=== PATIENT | female | born 1960 | race Caucasian/White ===

== ENCOUNTER 2019-09-26 14:28 | Emergency (ER) | payer OTHER, SELFPAY ==
[2019-09-26 15:07] VITALS: BP 163/86; PULSE 80; RESP 16; O2SAT 98; BMI 27.3
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
[2019-09-26] MEDS: KETOROLAC 60 MG/2 ML VIAL 30 MG IM (16:59)
[2019-09-26] MEDS: BACITRACIN OINT 0.9 GM PCKT 5 APPLIC TOP (16:59)
[2019-09-26] MEDS: HYDROCODONE/ACET 5/325 TABLET 1 TAB PO (17:00)
[2019-09-26 17:32] VITALS: BP 167/81; PULSE 86; O2SAT 100
[2019-09-26 17:38] VITALS: BP 168/85; PULSE 86; O2SAT 98
== END 2019-09-26 17:32 | disposition home or self-care (01) ==
PROVIDERS: Emergency Provider Nurse Practitioner Family; Family Provider Physician Assistant; PCP Orthopaedic Surgery
DX: L55.9 Sunburn, unspecified (principal)
CPT/HCPCS: 96372; 99283; J1885

== ENCOUNTER 2020-09-24 18:36 | Emergency (ER) | payer OTHER, SELFPAY ==
[2020-09-24 18:41] VITALS: BP 182/78; PULSE 78; RESP 14; TEMP 36.8; O2SAT 99
--- NOTE | 2020-09-24 18:49 | DI.RAD.S_ITS ---
PROCEDURE: XR KNEE RT 3V INDICATIONS: fall TECHNIQUE: 3 views of the knee were acquired. COMPARISON: None. FINDINGS: Bones: No fractures or dislocations. No suspicious bony lesions. Soft tissues: No joint effusion. No suspicious soft tissue calcifications. IMPRESSION: Normal right knee Dictated by: Dale Choi M.D. on 09/24/2020 at 19:45 Approved by: Dale Choi M.D. on 09/24/2020 at 19:46
--- NOTE | 2020-09-24 18:49 | DI.RAD.S_ITS ---
PROCEDURE: XR WRIST LT MIN 3V INDICATIONS: fall TECHNIQUE: 5 views of the wrist were acquired. COMPARISON: None. FINDINGS: Bones: No fracture or dislocation. There are degenerative changes with subchondral cystic changes of the base of the thumb metacarpal. Scaphoid view: No fracture. Soft tissues: Calcifications are seen in the triangular fibrocartilage consistent with chondrocalcinosis. IMPRESSION: 1. No acute abnormality of left wrist. 2. Chondrocalcinosis. Differential diagnosis includes but is not limited to hemochromatosis, hyperparathyroidism, and CPPD. Dictated by: Dale Choi M.D. on 09/24/2020 at 19:41 Approved by: Dale Choi M.D. on 09/24/2020 at 19:45
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
[2020-09-24 22:24] VITALS: BP 178/90; PULSE 70; RESP 18; O2SAT 95
== END 2020-09-24 22:26 | disposition home or self-care (01) ==
PROVIDERS: Emergency Provider Emergency Medicine; Family Provider Physician Assistant; PCP Family Medicine
DX: S80.211A Abrasion, right knee, initial encounter (principal); S60.212A Contusion of left wrist, initial encounter; S20.211A Contusion of right front wall of thorax, initial encounter; W10.9XXA Fall (on) (from) unspecified stairs and steps, initial encounter; Y99.0 Civilian activity done for income or pay
CPT/HCPCS: 71045; 73110; 73562; 99281; 99283

== ENCOUNTER → 2020-11-04 10:42 | Outpatient (CLI) | payer OTHER, SELFPAY ==
[2020-11-04 12:39] LABS: COVID19 -Nasal RAPID Negative (Negative)
== END ==
PROVIDERS: Family Provider Physician Assistant; PCP Family Medicine; Referring Provider Internal Medicine; Visit Provider Internal Medicine
DX: Z20.822 Contact with and (suspected) exposure to COVID-19 (principal)
CPT/HCPCS: 87635; C9803

== ENCOUNTER → 2020-11-05 08:34 | Outpatient (CLI) | payer OTHER, SELFPAY ==
--- NOTE | 2020-11-11 09:21 | PM.PFT.1 ---
Pulmonary Function Test Referral & Results Date Patient Seen: 11/05/20 Requesting provider: Deep Phipps Indication: Dyspnea Results: The spirometry demonstrates an FVC of 2.23 L which is 67% of predicted. The FEV1 was measured at 1.67 L which is 64% of predicted. The FEV1/FVC ratio was 75 which is 95% of predicted. Following the administration of bronchodilator there was at 13% improvement in FEV1 and a 57% improvement in FEF 25-75%. Lung volumes show an SVC of 2.37 L which is 77% of predicted. The diffusing capacity was measured at 16.30 which is 67% of predicted. No hemoglobin value was provided, so no correction for potential anemia could be made, if appropriate. The maximum voluntary ventilation was slightly reduced Interpretation: This study demonstrates perhaps mild obstructive lung disease based on reduction FEV1 although FEV1/FVC ratio is preserved. There is some limited evidence of benefit following bronchodilator and shape a flow volume loop but also suggest the presence of obstructive lung disease There is a minimal reduction in lung volumes suggesting an element of restrictive lung disease is also present There is also mild reduction in diffusing capacity suggesting disease at the capillary alveolar level
== END ==
PROVIDERS: Family Provider Physician Assistant; PCP Family Medicine; Referring Provider Internal Medicine Cardiovascular Disease; Visit Provider Internal Medicine Cardiovascular Disease
DX: R06.00 Dyspnea, unspecified (principal); Z87.891 Personal history of nicotine dependence; J98.8 Other specified respiratory disorders
CPT/HCPCS: 94060; 94726; 94729

== ENCOUNTER → 2020-11-10 09:06 | Outpatient (CLI) | payer OTHER, SELFPAY ==
--- OUTSIDE RECORDS SUMMARY | 2020-10-29 09:52 | XMS_ITS | Referral Summary ---
:1960 Author Organization [facility] Address [address] [place] [id number] Care Team Providers Name Role Phone DO Jc Primary Care Provider Reason for Referral Hospital - Outpatient (Routine) Status Reason Specialty Diagnoses / Procedures Referred By Mika edwards Referred To Contact Closed Diagnoses BLAND (dyspnea on exertion) Former smoker Deep Phipps, Procedures Complete PFT with DLCO [address] [place] [address] Suite [facility] [id number] [place], [place] Phone: [phone] Phone: Electronically signed by Deep Phipps MD at (Routine) Status Reason Specialty Diagnoses / Referred By Referred To Procedures Contact Contact Pending Review Diagnoses BLAND (dyspnea on exertion) RBBB Deep Phipps Procedures ECHOCARDIOGRAM ELIN Conroy MD [address] [place] [phone] Electronically signed by Deep Phipps MD at Reason for Visit Reason Comments Heart Problem Consultation (Routine) Status Reason Specialty Diagnoses / Referred By Referred To Procedures Contact Contact Authorized Specialty Cardiology Diagnoses Dyspnea on exertion Sona Greene [employer] DO Cardiology Required [address] [place] [id number] [place], Phone: [place] [phone] Phone: Encounter Details Date Type Department Care Team Description 09/01/2020 Office Visit [facility] BLAND (dyspn ea on exertion) (Primary Dx); Clinics Cardiology RSusi, MD BEAVERSBB; Dema [address] Former smoker; [facility], [facility] e [facility] Essential hypertension; D Justen Bacon [place] Hyperlipidemia, unspecified hyperlipidemia type SONNY Drake [phone] Allergies No Known Active Allergiesdocumented as of this encounter (statuses as of 10/28/2020) Medications Medication Sig Dispensed Refills Start End Date Status Date traZODone (DESYREL) take 2 tablet 180 tablet 0 Active 50 mg by mouth at 0 tabletIndications: bedtime Insomnia, unspecified type sertraline (ZOLOFT) Take 1 tablet 90 tablet 1 Active 50 mg (50 mg total) 1 tabletIndications: by mouth daily Recurrent major depression in remission (CMS/HCC) atorvastatin take 1 tablet 90 tablet 3 Act efren (LIPITOR) 10 mg by mouth once 1 tablet daily cloNIDine take 1 tablet 180 tablet 2 Activ e (CATAPRES) 0.1 mg by mouth twice 1 tabletIndications: a day Essential hypertension spironolactone Take 1 tablet 90 tablet 3 A ctive (ALDACTONE) 100 mg (100 mg total) 1 tabletIndications: by mouth once Essential daily hypertension clindamycin Apply 30 g 0 08/14/19 Active (CLINDAGEL) 1 % topically once 04 10 gelIndications: daily Apply to Acne vulgaris face once daily. amLODIPine Take 1 tablet 30 tablet 11 09/02/19 Activ e (NORVASC) 5 mg (5 mg total) 1 22 tablet by mouth daily ibuprofen take 1 tablet 60 tablet 1 09/15/19 Discon tinued (ADVIL,MOTRIN) 800 by mouth twice 1 21 (Reorder) mg a day with tabletIndications: food Chronic pain of multiple joints traMADoL (ULTRAM) take / 28 tablet 0 09/15/19 Di scontinued 50 mg tablet by 1 21 (Reorder) tabletIndications: mouth twice a Primary day if needed osteoarthritis for moderate involving multiple pain to severe joints, Chronic pain FOR UP TO pain of multiple 28 DAYS joints documented as of this encounter (statuses as of 10/28/2020) Active Problems Problem Noted Date Encounter for chronic pain management 05/25/2020 Overview: Formatting of this note might be differe nt from the original. TX FROM PAPER CHART Osteopenia 05/25/2020 Overview: Formatting of this note might be differe nt from the original. TX FROM PAPER CHART Combined form of age-related cataract, both eyes 05/11 Fatigue 10/31/2019 Last Assessment & Plan: This may be secondary to chronic pain, h owever, labs ordered to evaluate further as the etiology is not clear. Psychophysiological insomnia 06/12/2019 Last Assessment & Plan: This is stable and well-controlled. With the recent code that outbreak, she admits to feeling anxious, but that her anxiety is not severe and overall she feels like she is doing well . Encouraged good self-care and taking romina e each for stress management Continue current pharmacologic managemen t with trazodone 50 mg daily at bedtime when necessary for insomnia and reevaluate on follow-up. 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 Her chronic tramadol prescription has not been filled since 04/01/2019 as she underwent an arthrodesis of the right index finge r on 05/02/2019 and has been receiving po stoperative pain medication through orthopedics. Anticipate transitioning away from her postoperative pain medication back to her chronic opiate medication in 2 weeks from now. Plan for her to follow-up in office rega rding chronic pain in 3 months Primary osteoarthritis involving multiple joints 01/23 Lumbar spondylosis 08/16/2018 Last Assessment & Plan: Maximizing nonopiate therapy, massage th erapy referral as below to help reduce her msucular tension. She is not to use more than 1 tablet of tramadol total per day (0.5 tablet BID PRN) Reevaluate on follow up. Stiffness of finger joint 08/16/2018 Last Assessment & Plan: X-ray imaging ordered to evaluate furthe r, suspect underlying osteoarthritis Health care maintenance 05/21/2018 Last Assessment & Plan: Pap with HPV testing ordered today, if P ap is normal and she is HPV negative, anticipate next Pap in 5 years. Normal manual breast exam, await radiolo gy report regarding her mammogram. Screening labs were performed on 04/21/18 Essential hypertension 05/21/2018 Last Assessment & Plan: This is stable and well-controlled. Cont inue current pharmacologic management and reevaluate on follow-up. Osteopenia 05/08/2018 Overview: Overview: TX FROM PAPER CHART History of uveitis 05/08/2018 Overview: Overview: TX FROM PAPER CHART History of psoriasis 05/08/2018 Overview: Overview: TX FROM PAPER CHART Other emphysema 05/05/2010 Overview: Overview: CT Chest: mild emphysema, normal PFTs (1 0/10) Disorder of bursae and tendons in shoulder region 07/18 Scleritis 05/29/2009 Overview: Overview: DX: Nodular scleritis OD ( Dr. Dotson [facility]) Undergoing work up for Sarcoidosis. documented as of this encounter (statuses as of 10/28/2020) Immunizations Name Administration Dates Next Due FLU PF 6+Mos Quad (Fluzone, FluLaval, 12/19/2018, 10/20/2016 Fluarix) FLU PF 6-35 Mo (Fluzone 0.25 mL 01/02/2012 Syringe) Influenza, Quadrivalent 01/01/2015, 12/31/2013, 01/06/2013, 12/24/2011 Tdap (Boostrix,Adacel) 01/29/2019 documented as of this encounter Social History Tobacco Use Types Packs/Day Years Used Date Former Smoker 04 18 Quit: 2016 Smokeless Tobacco: Never Used Alcohol Use Standard Drinks/Week Comments Yes 2 (1 standard drink = 0.6 oz pure alcoho l) Sex Assigned at Date Recorded Not on file Job Start Date Occupation Industry Not on file Not on file Not on file documented as of this encounter Last Filed Vital Signs Vital Sign Reading Time Taken Comments Blood Pressure 148/88 09/01/2020 9:07 AM PDT Pulse 81 09/01/2020 9:06 AM PDT Temperature - - Respiratory Rate - - Oxygen Saturation - - Inhaled Oxygen Concentration - - Weight 72.5 kg (159 lb 12.8 oz) 09/01/2020 9:06 AM PDT Height 162.6 cm (5' 4.02) 09/01/2020 9:06 AM PDT Body Mass Index 27.42 09/01/2020 9:06 AM PDT documented in this encounter Patient Instructions Patient InstructionsDestiny Rodriguez ARNP - 09/01/2020 9:00 AM PDT Heart healthy diet is using extra virgin olive oil; eating unsalted nuts such as almonds, cashews, and walnuts/pecans; and eating legumes, lentils, avacados, quinoa, vegetables, and fruits. Avoid red meat and avoid coconut oil. Buy an [employer] brand upper arm BP monitor. documented in this encounter Progress Notes Deep Phipps MD - 09/01/2020 9:00 AM PDT Subjective Patient ID: Joanne Yuan is a 60 y.o. female that presents today for had concerns including Heart Problem. HPI: She is a pleasant 60 year old woman here to establish care due to her Right Bundle Branch Block. She has a history of HTN, HLD, Former Smoker for 30 years (quit 2017). She describes having dyspnea on exertion, worsening over the last two years. She works in the [employer] and walks a lot throughout the day. She can walk up 8 flights of steps and states she feels winded. She has been told that she snores, wakes with air hunger sometimes, and props herself with 2 pillows for ease. She also says that she gained about 30 lbs over the last two years, her diet is described as crummy, drinks 2 cups of coffee daily, and would like more heart healthy diet ideas. She denies palpitations/heartracing, peripheral edema or syncope. PROBLEM LIST: #RBBB #HTN #HLD #Former Smoker Past Medical History: Diagnosis Date ??? Anxiety ??? Arthritis ??? Depression ??? High cholesterol ??? Hypertension Past Surgical History: Procedure Laterality Date ??? CARPAL TUNNEL RELEASE Bilateral ??? JOINT REPLACEMENT ??? KNEE ARTHROSCOPY ??? MA FUSION FINGER JOINT Right 05/02/2019 Procedure: ARTHRODESIS OF RIGHT INDEX FINGER DISTAL INTERPHALANEAL JOINT; Surgeon: Kvng Swenson DO; Location: [facility] OR; Service: Orthopedics ??? TOTAL HIP ARTHROPLASTY Right ??? TRIGGER FINGER RELEASE Family History Problem Relation Age of Onset ??? Heart attack Mother 51 ??? Hypertension Mother ??? COPD Father ??? Heart disease Father ??? Kidney disease Father ??? Hypertension Father ??? No Known Problems Sister ??? Magnolia's thyroiditis Daughter ??? Other Grandchild coartltation of aorta Social History Socioeconomic History ??? Marital status: Spouse name: Not on file ??? Number of children: Not on file ??? Years of education: Not on file ??? Highest education level: Not on file Tobacco Use ??? Smoking status: Former Smoker Packs/day: 1.00 Years: 30.00 Pack years: 30.00 Quit date: 2017 Years since quittin.4 ??? Smokeless tobacco: Never Used Substance and Sexual Activity ??? Alcohol use: Yes Alcohol/week: 2.0 standard drinks Types: 2 Glasses of wine per week ??? Drug use: Never ??? Sexual activity: Defer No Known Allergies Current Medication List Sig atorvastatin (LIPITOR) 10 mg tablet take 1 tablet by mouth once daily clindamycin (CLINDAGEL) 1 % gel Apply topically once daily Apply to face once daily. cloNIDine (CATAPRES) 0.1 mg tablet take 1 tablet by mouth twice a day ibuprofen (ADVIL,MOTRIN) 800 mg tablet take 1 tablet by mouth twice a day with food sertraline (ZOLOFT) 50 mg tablet Take 1 tablet (50 mg total) by mouth daily spironolactone (ALDACTONE) 100 mg tablet Take 1 tablet (100 mg total) by mouth once daily traMADoL (ULTRAM) 50 mg tablet take 1/2 tablet by mouth twice a day if needed for moderate pain to severe pain FOR UP TO 28 DAYS traZODone (DESYREL) 50 mg tablet take 2 tablet by mouth at bedtime amLODIPine (NORVASC) 5 mg tablet Take 1 tablet (5 mg total) by mouth daily Review of Systems Constitutional: Negative for fatigue and unexpected weight change. Eyes: Negative for visual disturbance. Respiratory: Negative for chest tightness and shortness of breath. Cardiovascular: Negative for chest pain, palpitations and leg swelling. Gastrointestinal: Negative for blood in stool. Endocrine: Negative for polydipsia. Genitourinary: Negative for hematuria. Musculoskeletal: Negative for myalgias. Skin: Negative for rash. Neurological: Negative for dizziness, syncope, weakness and light-headedness. Hematological: Does not bruise/bleed easily. Psychiatric/Behavioral: The patient is not nervous/anxious. All other systems reviewed and are negative. I have obtained and documented the patient's history and reviewed/discussed with Dr. Phipps. Destiny Rodriguez FUNDRAISING COORDINATOR Objective BP (!) 148/88 (BP Location: Right arm, Patient Position: Sitting) Pulse 81 Ht 1.626 m Wt 72.5 kg BMI 27.42 kg/m?? Physical Exam: General appearance: No apparent distress, well-nourished, pleasant, cooperative HEET: Normocephalic atraumatic, no scleral icterus, tongue midline, mucous membranes moist Neck: supple Cardiovascular: RRR, normal S1 and normal S2, no murmurs/ rubs/gallops, PMI nondisplaced, no JVD, noperipheral edema Respiratory: Good aeration, CTAB Abdomen: Soft, nontender, nondistended, + bowel sounds Neuro: Alert, no facial droop, tongue midline, no gross motor deficits Psych: appropriate affect Skin: no rashes on face, neck, and lower extremities ECG 09/01/2020 RBBB Labs: 10/26/2018 Magnesium 2.0. Triglycerides,165, Total cholesterol 77, HDL 82, LDL 77. Labs: 05/25/2020 Hemoglobin 14.6, Hematocrit 45.1, Sodium 139, Potassium 4.4, Chloride 98, C02 28, BUN 19, Creatinine 0.58, Calcium 10.3, BUN/Creatinine ratio 32.8, TSH 1.990. Assessment/Plan Comments: 1. BLAND (dyspnea on exertion) ECG 12 Lead (Clinic - Same Day), ECHOCARDIOGRAM COMPLETE, Complete PFTwith DLCO 2. RBBB ECHOCARDIOGRAM COMPLETE 3. Former smoker Complete PFT with DLCO 4. Essential hypertension 5. Hyperlipidemia, unspecified hyperlipidemia type # Dyspnea with climbing up 8 flights of stairs, worsening shortness of breath in the last two years.DDx includes pulmonary etiology and cardiac (less likely). Older age may also be playing a role. Plan: - Echo - PFTs # HTN, elevated today. Plan: - Start amlodipine 5mg daily - Continue spironolactone 100mg daily - Continue clonidine 0.1mg bid # HLD: have been well controlled . Plan: - Continue atorvastatin 10mg at bedtime F/U in 3 months with echo and PFTs as VV. SMITH, Destiny Tello, was present during parts of the visit with the patient and myself, to obtain preliminary history and to familiarize with the Plan of Care (POC) and Medical Decision Making (MDM) for any possible future visits and care. I performed a full history, physical exam, and MDM and then developed POC with the note as above along with my edits. Electronically signed by Deep Phipps MD 09/01/2020 1:22 PM documented in this encounter Plan of Treatment Upcoming Encounters Date Type Specialty Care Team Description 11/26/2020 Telemedicine Cardiology Deep Phipps MD [address] [facility] [address] [place] [address] [phone] Scheduled Orders Name Type Priority Associated Diagnoses Order S chedule ECHOCARDIOGRAM COMPLETE Imaging Routine BLAND (dyspnea on E xpected: 09/01/2020, exertion) Expires: 09/01/2022 RBBB Complete PFT with DLCO PFT Routine BLAND (dyspnea on Ex pected: 09/01/2020, exertion) Expires: 09/01/2021 Former smoker documented as of this encounter Implants Implanted Type Area Rubber Goods Inspector Tester Device Shelf Model / Identifier Expiration Date Ser ial / Lot Screw Abrahan Comp Luis M 2.5 X 28mm - [id number] Right: ARTHRX [id number] / Implanted: Qty: 1 on 05/02/2019 by Kvng Swenson DO at [facility] Index / Finger documented as of this encounter Procedures Procedure Name Priority Date/Time Associated Diagnosis Comme nts ECG 12-LEAD Routine 09/01/2020 8:54 AM BLAND (dyspnea on Resul ts for this PDT exertion) procedure are i n the results section . documented in this encounter Results ECG 12 Lead (Clinic - Same Day) (09/01/2020 8:54 AM PDT) Specimen Narrative Performed At This result has an attachment that is no t available. 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
--- NOTE | 2020-11-10 | DI.ECHO.S_ITS ---
[place] [facility]---------+ [facility] +---------+ : : [address] : : : : [phone] : : : : Phone: [phone] Echocardiogram Report + + :Name: RALPH RICHMOND Study Date: 11/10/2020 Height: 64 in : :[facility] ReadingLocation: Weight: 153 lb : : Gender: Female BSA: 1.7 m2 : :: 1960 Age: 60 yrs BP: 155/87 mmHg: :Reason For Study: DYSPNEA : :Ordering Physician: ADONIS, : :MURIEL Performed By: Mikki Lai : :Referring: MURIEL PHIPPS : + + Interpretation Summary 1) Normal left ventricular thickness, size, wall motion, and systolic function (EF 55-60%). 2) Normal right ventricular size and function. 3) No significant valvular abnormalities. 4) There is a trace or physiologic amount of tricuspid regurgitation. 5) No prior Echo available for comparison. Procedure: A two-dimensional transthoracic echocardiogram with color flow and Doppler was performed. The study quality was technically adequate. There is no prior echocardiogram noted for this patient. The patient was in sinus rhythm with heart rates between 61-78 bpm during the exam. Left Ventricle: The left ventricle is normal in size and wall thickness. The ejection fraction is estimated to be 55-60%. Left ventricular systolic function appears normal without focal wall motion abnormalities. Diastolic parameters suggest probable normal left ventricular diastolic function and normal filling pressures. Right Ventricle: The right ventricle is normal in size and function. Atria: The left atrial size is normal. Right atrial size is normal. There is no Doppler evidence for an interatrial shunt. Mitral Valve: The mitral valve is normal in structure and function. There is trace mitral regurgitation. Aortic Valve: The aortic valve is trileaflet. The aortic valve opens well. There is no aortic valve stenosis. No aortic regurgitation is present. Tricuspid Valve: The tricuspid valve is normal in structure and function. There is a trace or physiologic amount of tricuspid regurgitation. Pulmonary artery pressures cannot be estimated because of the lack of a measurable TR jet velocity but the IVC suggests a CVP of around 3 mmHg. Pulmonic Valve: The pulmonic valve is not well visualized. There is no pulmonic valvular regurgitation. Great Vessels: The aortic root is normal size. The ascending aorta could not be visualized. The IVC is of normal diameter and collapses greater than 50% with a sniff. This suggests a low right atrial pressure of 3 mm Hg. Pericardium/ Pleura There is no pericardial effusion. There is no pleural effusion. MMode/2D Measurements & Calculations LVIDd: 5.3 cm LVOT diam: 2.0 cm LVIDs: 3.6 cm Ao root diam: 3.4 cm FS: 31.9 % asc Aorta Diam: 3.2 cm IVSd: 0.70 cm Ao Arch Diam (Prox Trans): 2.5 cm LVPWd: 0.85 cm LV marie. diameter/BSA (cm/m^2): 3.0 LV sys. diameter/BSA (cm/m^2): 2.1 LA A2 area: 15.7 cm2 RA long axis: 5.0 cm LA A4 area: 14.8 cm2 RA area: 13.8 cm2 LA length (vol): 4.9 cm RA vol: 32.4 ml LA vol: 40.3 ml RA : 18.6 ml/m2 LA vol index: 23.1 ml/m2 IVC diam: 1.3 cm RVD1 (basal): 3.4 cm TAPSE: 2.2 cm Doppler Measurements & Calculations Ao V2 max: 137.5 cm/sec LVOT Max Chacorta: 100.3 cm/sec Ao V2 mean: 99.6 cm/sec LV V1 max P.0 mmHg Ao max P.6 mmHg LV V1 VTI: 18.8 cm Ao mean P.3 mmHg VINCENZO(I,D): 1.9 cm2 Ao V2 VTI: 29.6 cm VINCENZO(V,D): 2.2 cm2 sev ratio: 0.64 VINCENZO indexed to BSA (cm^2/m^2): 1.1 MV E max chacorta: 86.8 cm/sec PA V2 max: 97.8 cm/sec MV A max chacorta: 88.6 cm/sec PA V2 mean: 68.9 cm/sec MV E/A: 0.98 PA mean P.1 mmHg Med Peak E' Chacorta: 7.8 cm/sec PA pr(Accel): 15.6 mmHg E/E' med: 11.1 Lat Peak E' Chacorta: 9.7 cm/sec E/E' lat: 8.9 E/e' average: 10.0 MV dec time: 0.20 sec SV(LVOT): 57.4 ml Reading Physician:02:02 PM
== END ==
PROVIDERS: Family Provider Physician Assistant; PCP Family Medicine; Referring Provider Internal Medicine Cardiovascular Disease; Visit Provider Internal Medicine Cardiovascular Disease
DX: R06.00 Dyspnea, unspecified (principal); I45.10 Unspecified right bundle-branch block
CPT/HCPCS: 93306

== ENCOUNTER 2021-05-05 12:01 | Emergency (ER) | payer OTHER, SELFPAY ==
[2021-05-05 12:04] VITALS: BP 126/59; PULSE 82; RESP 16; TEMP 36.4; O2SAT 96; BMI 27.3
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
[2021-05-05] MEDS: KETOROLAC 30 MG/ML VIAL IM (15:04)
[2021-05-05] MEDS: GABAPENTIN 300 MG CAPSULE PO (15:05)
[2021-05-05] MEDS: predniSONE 20 MG TABLET 60 MG PO (15:05)
[2021-05-05] MEDS: CYCLOBENZAPRINE 10 MG TABLET PO (15:05)
[2021-05-05 16:05] VITALS: BP 128/76; PULSE 76; RESP 16; O2SAT 97
== END 2021-05-05 16:05 | disposition home or self-care (01) ==
PROVIDERS: Emergency Provider Emergency Medicine; Family Provider Physician Assistant; PCP Family Medicine
DX: M54.31 Sciatica, right side (principal)
CPT/HCPCS: 96372; 99283; J1885

== ENCOUNTER 2021-05-19 13:00 | Emergency (ER) | payer OTHER, SELFPAY ==
[2021-05-19 13:28] VITALS: BP 168/84; PULSE 84; RESP 22; TEMP 36.6; O2SAT 99
--- NOTE | 2021-05-19 15:40 | DI.RAD.S_ITS ---
PROCEDURE: XR PELVIS 1-2V INDICATIONS: inguinal pain TECHNIQUE: 1 view(s) of the pelvis acquired. COMPARISON: None. FINDINGS: Bones: No fractures or dislocations. No suspicious bony lesions. Right hip arthroplasty is present. No hardware fracture or periprosthetic lucency to suggest loosening. Mild to moderate right hip degenerative change. Soft tissues: Visualized bowel gas pattern is normal. No suspicious soft tissue calcifications. IMPRESSION: No visualized cause of inguinal pain. If concern persists, CT or ultrasound is recommended. Dictated by: Mary Mays M.D. on 05/19/2021 at 16:30 Approved by: Mary Mays M.D. on 05/19/2021 at 16:30
[2021-05-19 15:45] VITALS: BP 140/76; PULSE 83; RESP 18; TEMP 36.5; O2SAT 98
[2021-05-19] MEDS: LIDOCAINE PATCH 1 EACH ADH..PATCH TOP (16:17)
[2021-05-19] MEDS: HYDROCODONE/ACET 5/325 TABLET 1 TAB PO (16:17)
[2021-05-19] MEDS: CYCLOBENZAPRINE 10 MG TABLET PO (16:17)
[2021-05-19 17:28] LABS: Amorphous Sediment Urine 1+; Bacteria Urine None Seen; Culture Indicated Urine Cult Not Indicated; RBC Urine 0-1/HPF (0-5/HPF); Squamous Epithelial Cell Urine 5-10 /HPF (0-5/HPF); WBC Urine 1-5/HPF (0-5/HPF)
[2021-05-19 17:50] VITALS: BP 140/78; PULSE 84; RESP 16; O2SAT 99
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
== END 2021-05-19 17:50 | disposition home or self-care (01) ==
PROVIDERS: Emergency Provider Nurse Practitioner Family; Family Provider Physician Assistant; PCP Family Medicine
DX: M54.50 Low back pain, unspecified (principal); M25.552 Pain in left hip
CPT/HCPCS: 72170; 81003; 81015; 99283

== ENCOUNTER → 2021-06-08 12:56 | Outpatient (CLI) | payer OTHER, SELFPAY ==
[2021-06-08 14:23] LABS: Alanine Aminotransferase 18 IU/L (<35); Albumin 4.6 g/dL (3.5-5.0); Albumin Globulin Ratio 1.5 (1.0-2.8); Alkaline Phosphatase 98 U/L (38-126); Aspartate Aminotransferase 29 IU/L (14-36); BUN Creatinine Ratio 28.6 (6-22); Bilirubin Total 0.5 mg/dL (0.2-1.3); Blood Urea Nitrogen 22 mg/dL (7-17); Calcium 9.7 mg/dL (8.4-10.2); Carbon Dioxide 30 mmol/L (22-32); Chloride 98 mmol/L (98-107); Estimated Glomerular Filt Rate > 60.0 mL/min (>60); Glucose 95 mg/dL (80-110); HEMOLYSIS < 15 (0-50); Potassium 4.3 mmol/L (3.4-5.1); Sodium 136 mmol/L (137-145); Total Protein 7.6 g/dL (6.3-8.2)
[2021-06-08 15:51] LABS: Vitamin D 25 Hydroxy (D3) 50.6 ng/mL (30.0-100.0)
== END ==
PROVIDERS: Family Provider Physician Assistant; PCP Physician Assistant; Referring Provider Orthopaedic Surgery; Visit Provider Orthopaedic Surgery
DX: M16.12 Unilateral primary osteoarthritis, left hip (principal)
CPT/HCPCS: 36415; 80053; 82306

== ENCOUNTER → 2021-07-06 09:41 | Outpatient (CLI) | payer OTHER, SELFPAY | PROVIDERS: Family Provider Physician Assistant; PCP Physician Assistant; Referring Provider Orthopaedic Surgery; Visit Provider Orthopaedic Surgery | DX: Z13.820 Encounter for screening for osteoporosis; M85.89 Other specified disorders of bone density and structure, multiple sites; Z78.0 Asymptomatic menopausal state | CPT/HCPCS: 77080; 77081 ==

== ENCOUNTER → 2021-08-14 13:02 | Outpatient (CLI) | payer OTHER, SELFPAY ==
--- NOTE | 2021-08-14 13:06 | DI.MRI.S_ITS ---
PROCEDURE: MR PELVIS WO CON INDICATIONS: Low back pain TECHNIQUE: Noncontrast coronal and axial T1 spin echo and STIR through the bony pelvis. COMPARISON: [facility], CR, XR LUMBAR SPINE WITH FLEXION EXTENSION 5 VIEWS, 08/05/2021, 10:36. FINDINGS: Image quality: Excellent. Bones: Extensive marrow edema involving bilateral sacrum are seen with ill-defined internal linear hypointense signal suggestive of insufficiency fracture of the sacrum. Marrow edema involving inferior portion of right iliac bone adjacent to sacroiliac joint is also seen without discrete fracture line. Patient is status post prior right total hip arthroplasty with susceptibility artifacts from right hip. Moderate left hip joint osteoarthritic changes are seen. No hip fracture or dislocation. No evidence of avascular necrosis of femoral head. No suspicious intraosseous lesion. Tendons: There is tendinosis and low-grade partial-thickness tear involving bilateral distal gluteus medius and minimus tendons at their insertions on greater trochanters. Small amount of fluid is seen distending right trochanteric bursa concerning for low-grade bursitis. Edema within left adductor joss and obturator externus muscles are seen. The origin of the hamstring tendon is intact at the ischial tuberosity, as well as the associated sacrotuberous ligament. Soft tissues: Visualized muscles demonstrate normal bulk and internal signal. No joint effusions. No free pelvic fluid. Bladder wall thickness is normal. Genitourinary structures and bowel loops appear normal where visualized. IMPRESSION: 1. Finding is suggestive of insufficiency fractures involving bilateral sacrum with extensive marrow edema. Nonspecific marrow edema in adjacent right iliac bone inferior aspect adjacent to sacroiliac joint without definite fracture line. 2. Prior right total hip arthroplasty. No left hip fracture or dislocation. Moderate left hip joint osteoarthritis. No evidence of avascular necrosis. 3. Bilateral distal gluteus medius and minimus tendinosis and low-grade partial-thickness tear at their insertions on greater trochanter. Strain/low to moderate grade partial-thickness tear involving left adductor joss and obturator externus muscles. Small amount of fluid distending right trochanteric bursa concerning for low-grade bursitis. Dictated by: Faisal Todd M.D. on 08/17/2021 at 10:58 Approved by: Faisal Todd M.D. on 08/17/2021 at 11:05
--- NOTE | 2021-08-14 13:06 | DI.MRI.S_ITS ---
PROCEDURE: MR LUMBAR SPINE WO CON INDICATIONS: Low back pain TECHNIQUE: Noncontrast sagittal T1 spin echo and T2 fast echo, sagittal STIR, and T2 fast spin echo through the lumbar spine. In cases with scoliosis, additional coronal T2 fast spin echo may be performed. COMPARISON: [facility], CR, XR LUMBAR SPINE WITH FLEXION EXTENSION 5 VIEWS, 08/05/2021, 10:36. FINDINGS: Image quality: Degraded by patient motion artifact. Alignment and Curvature: There is mild L1-L2, L2-L3 and L3-L4 retrolisthesis. There is mild L4-L5 anterolisthesis. Bone Marrow: Mild r Modic type 2 reactive endplate changes noted adjacent to the L1-L2, L4-L5 and L5-S1 discs. No acute vertebral body compression fractures. Spinal Cord: Conus medullaris terminates at the L1 level. Visualized cord demonstrates normal signal and size. Paraspinous Soft Tissues: No paravertebral masses. Left renal cysts. T12-L1: Loss of disc signal. No central stenosis. No neural foraminal narrowing. No neural compression. L1-L2: Loss of disc signal and height. Moderate, diffuse disc bulge. No central stenosis. Mild bilateral neural foraminal narrowing. No neural compression L2-L3: Loss of disc signal. Moderate, diffuse disc bulge. No central stenosis. Mild bilateral neural foraminal narrowing. No neural compression L3-L4: Loss of disc signal. Moderate, diffuse disc bulge. Mild bilateral facet hypertrophy. Mild narrowing of the central canal. Mild to moderate bilateral neural foraminal narrowing. No neural compression. Fissure noted in the anterior annulus. L4-L5: Loss of disc signal and slight loss of disc height. Moderate, diffuse disc bulge. Moderate bilateral facet hypertrophy. Moderate narrowing of the central canal. Moderate bilateral neural foraminal narrowing. No neural compression. Fissure noted in the anterior annulus. L5-S1: Loss of disc signal and height. Mild, diffuse disc bulge. Mild bilateral facet hypertrophy. No central stenosis. Mild right and moderate left neural foraminal narrowing. No neural compression. Fissure noted in the posterior annulus. Increased T2 signal noted in the visualized bilateral sacral ala concerning for insufficiency fractures. IMPRESSION: 1. Multilevel degenerative disc disease. 2. Multilevel facet arthropathy. 3. No severe central canal narrowing. 4. No severe neural foraminal narrowing. 5. No neural compression. 6. L3-L4, L4-L5 and L5-S1 disc annulus fissures. 7. Grade 1 L1-L2, L2-L3, L3-L4 and L4-L5 degenerative spondylolisthesis. 8. Probable bilateral sacral insufficiency fractures. Dictated by: Rosette Nance MD, PhD on 08/17/2021 at 8:49 Approved by: Rosette Nance MD, PhD on 08/17/2021 at 8:53
== END ==
PROVIDERS: Family Provider Physician Assistant; PCP Physician Assistant; Referring Provider Physician Assistant Surgical; Visit Provider Physician Assistant Surgical
DX: S32.010A Wedge compression fracture of first lumbar vertebra, initial encounter for closed fracture (principal); M54.50 Low back pain, unspecified; G89.29 Other chronic pain; S76.012A Strain of muscle, fascia and tendon of left hip, initial encounter; S76.011A Strain of muscle, fascia and tendon of right hip, initial encounter; M16.12 Unilateral primary osteoarthritis, left hip; M51.36 Other intervertebral disc degeneration, lumbar region; M47.816 Spondylosis without myelopathy or radiculopathy, lumbar region; Q05.7 Lumbar spina bifida without hydrocephalus; M43.16 Spondylolisthesis, lumbar region
CPT/HCPCS: 72148; 72195

== ENCOUNTER → 2022-02-19 12:05 | Outpatient (CLI) | payer OTHER, SELFPAY ==
[2022-02-19 12:28] LABS: Add Manual Diff / Slide Review NO; Basophils Absolute Auto 100 /uL (0-100); Basophils Percent Auto 0.8 % (0-2); Eosinophils Absolute Auto 700 /uL (0-450); Eosinophils Percent Auto 7.9 % (2-4); Hematocrit 38.5 % (36-46); Hemoglobin 12.8 g/dL (12.0-16.0); Lymphocytes Absolute Auto 1800 /uL (1100-4500); Lymphocytes Percent Auto 21.5 % (25-40); Mean Corpuscular HGB Conc 33.3 % (30-36); Mean Corpuscular Hemoglobin 30.6 PG (26-34); Mean Corpuscular Volume 91.9 fL (80-100); Monocytes Absolute Auto 700 /uL (0-900); Monocytes Percent Auto 8.4 % (3-14); Neutrophils Absolute Auto 5200 /uL (1500-7000); Neutrophils Percent Auto 61.4 % (50-75); Platelet Count 323 X10^3/uL (150-400); Red Blood Cell Count 4.19 X10^6/uL (4.0-5.2); Red Cell Distribution Width 12.5 % (11.6-14.8); White Blood Cell Count 8.4 X10^3/uL (4.5-11.0)
[2022-02-19 12:47] LABS: Alanine Aminotransferase 26 IU/L (<35); Albumin 4.2 g/dL (3.5-5.0); Albumin Globulin Ratio 1.5 (1.0-2.8); Alkaline Phosphatase 96 U/L (38-126); Aspartate Aminotransferase 28 IU/L (14-36); BUN Creatinine Ratio 53.2 (6-22); Bilirubin Total 0.5 mg/dL (0.2-1.3); Blood Urea Nitrogen 25 mg/dL (7-17); Calcium 8.9 mg/dL (8.4-10.2); Carbon Dioxide 28 mmol/L (22-32); Chloride 104 mmol/L (98-107); Cholesterol 182 mg/dL (140-199); Estimated Glomerular Filt Rate > 60 mL/min (>60); Globulin 2.8 g/dL (1.7-4.1); Glucose 101 mg/dL (80-110); HDL Cholesterol 54 mg/dL (40-60); HEMOLYSIS < 15 (0-50); LDL Cholesterol Calculated 110 mg/dL (<100); Potassium 3.9 mmol/L (3.4-5.1); Sodium 137 mmol/L (137-145); Triglycerides 90 mg/dL (35-150)
[2022-02-19 14:52] LABS: TSH w/ Reflex to FT4 2.11 uIU/mL (0.47-4.68)
== END ==
PROVIDERS: Family Provider Physician Assistant; PCP Family Medicine; Referring Provider Family Medicine; Visit Provider Family Medicine
DX: E78.5 Hyperlipidemia, unspecified (principal); G89.4 Chronic pain syndrome; I10 Essential (primary) hypertension; M54.9 Dorsalgia, unspecified
CPT/HCPCS: 36415; 80053; 80061; 84443; 85025

== ENCOUNTER → 2022-08-25 09:41 | Outpatient (CLI) | payer OTHER, SELFPAY ==
--- NOTE | 2022-08-25 09:42 | DI.RAD.S_ITS ---
PROCEDURE: XR ELBOW LT MIN 3V INDICATIONS: left forearm and elbow swelling TECHNIQUE: 3 views of the elbow were acquired. COMPARISON: None. FINDINGS: Bones: No fractures or dislocations. No suspicious bony lesions. Soft tissues: No elbow joint effusion. No suspicious soft tissue calcifications. IMPRESSION: No acute osseous abnormality. If clinically indicated consider follow-up radiographs in 10-14 days. Dictated by: Kyrie Cortez M.D. on 08/25/2022 at 10:30 Approved by: Kyrie Cortez M.D. on 08/25/2022 at 10:32
== END ==
PROVIDERS: Family Provider Physician Assistant; PCP Family Medicine; Referring Provider Family Medicine; Visit Provider Family Medicine
DX: M79.632 Pain in left forearm (principal)
CPT/HCPCS: 73080

== ENCOUNTER → 2022-11-19 09:17 | Outpatient (CLI) | payer OTHER, SELFPAY ==
[2022-11-19 10:48] LABS: Add Manual Diff / Slide Review NO; Basophils Absolute Auto 100 /uL (0-100); Basophils Percent Auto 1.2 % (0-2); Eosinophils Absolute Auto 300 /uL (0-450); Eosinophils Percent Auto 4.5 % (2-4); Hematocrit 39.2 % (36-46); Hemoglobin 13.2 g/dL (12.0-16.0); Lymphocytes Absolute Auto 1400 /uL (1100-4500); Lymphocytes Percent Auto 20.4 % (25-40); Mean Corpuscular HGB Conc 33.6 % (30-36); Mean Corpuscular Hemoglobin 31.3 PG (26-34); Mean Corpuscular Volume 93.4 fL (80-100); Monocytes Absolute Auto 600 /uL (0-900); Monocytes Percent Auto 9.1 % (3-14); Neutrophils Absolute Auto 4400 /uL (1500-7000); Neutrophils Percent Auto 64.8 % (50-75); Platelet Count 327 X10^3/uL (150-400); Red Cell Distribution Width 13.8 % (11.6-14.8); White Blood Cell Count 6.8 X10^3/uL (4.5-11.0)
[2022-11-19 11:23] LABS: Alanine Aminotransferase 25 IU/L (<35); Albumin Globulin Ratio 1.7 (1.0-2.8); Alkaline Phosphatase 77 U/L (38-126); Aspartate Aminotransferase 27 IU/L (14-36); BUN Creatinine Ratio 31.8 (6-22); Bilirubin Total 0.4 mg/dL (0.2-1.3); Blood Urea Nitrogen 14 mg/dL (7-17); Calcium 9.5 mg/dL (8.4-10.2); Carbon Dioxide 26 mmol/L (22-32); Chloride 103 mmol/L (98-107); Cholesterol 162 mg/dL (140-199); Estimated Glomerular Filt Rate > 60 mL/min (>60); Globulin 2.4 g/dL (1.7-4.1); Glucose 132 mg/dL (80-110); HDL Cholesterol 54 mg/dL (40-60); HEMOLYSIS < 15 (0-50); LDL Cholesterol Calculated 73 mg/dL (<100); Potassium 3.9 mmol/L (3.4-5.1); Sodium 137 mmol/L (137-145); Total Protein 6.4 g/dL (6.3-8.2); Triglycerides 176 mg/dL (35-150)
== END ==
PROVIDERS: Family Provider Physician Assistant; PCP Family Medicine; Referring Provider Family Medicine; Visit Provider Family Medicine
DX: E78.5 Hyperlipidemia, unspecified (principal); I10 Essential (primary) hypertension
CPT/HCPCS: 36415; 80053; 80061; 85025

== ENCOUNTER → 2023-01-14 14:48 | Outpatient (CLI) | payer OTHER, SELFPAY ==
--- NOTE | 2023-01-14 14:51 | DI.RAD.S_ITS ---
PROCEDURE: XR FOOT RT MIN 3V INDICATIONS: R distal foot pain TECHNIQUE: 3 views of the foot were acquired. COMPARISON: None. FINDINGS: Bones: No fractures or dislocations. No suspicious bony lesions. 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 Soft tissues: No tibiotalar joint effusion. Achilles tendon appears normal. 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 Dictated by: Luis E Shearer M.D. on 01/14/2023 at 16:37 Approved by: Luis E Shearer M.D. on 01/14/2023 at 16:38
== END ==
PROVIDERS: Family Provider Physician Assistant; PCP Family Medicine; Referring Provider Physician Assistant Medical; Visit Provider Physician Assistant Medical
DX: M19.071 Primary osteoarthritis, right ankle and foot (principal); M79.671 Pain in right foot
CPT/HCPCS: 73630

== ENCOUNTER → 2023-03-03 11:08 | Outpatient (CLI) | payer OTHER, SELFPAY ==
[2023-03-03 12:33] LABS: Add Manual Diff / Slide Review NO; Basophils Absolute Auto 100 /uL (0-100); Basophils Percent Auto 1.2 % (0-2); Eosinophils Absolute Auto 300 /uL (0-450); Eosinophils Percent Auto 5.4 % (2-4); Hemoglobin 13.5 g/dL (12.0-16.0); Lymphocytes Absolute Auto 1600 /uL (1100-4500); Lymphocytes Percent Auto 25.2 % (25-40); Mean Corpuscular HGB Conc 33.8 % (30-36); Mean Corpuscular Hemoglobin 31.6 PG (26-34); Mean Corpuscular Volume 93.4 fL (80-100); Monocytes Absolute Auto 500 /uL (0-900); Monocytes Percent Auto 8.2 % (3-14); Neutrophils Absolute Auto 3700 /uL (1500-7000); Platelet Count 362 X10^3/uL (150-400); Red Blood Cell Count 4.28 X10^6/uL (4.0-5.2); Red Cell Distribution Width 13.6 % (11.6-14.8); White Blood Cell Count 6.2 X10^3/uL (4.5-11.0)
[2023-03-03 12:40] LABS: Alanine Aminotransferase 22 IU/L (<35); Albumin 4.2 g/dL (3.5-5.0); Albumin Globulin Ratio 1.7 (1.0-2.8); Alkaline Phosphatase 73 U/L (38-126); Aspartate Aminotransferase 26 IU/L (14-36); Bilirubin Total 0.6 mg/dL (0.2-1.3); Blood Urea Nitrogen 18 mg/dL (7-17); Calcium 9.8 mg/dL (8.4-10.2); Carbon Dioxide 26 mmol/L (22-32); Chloride 104 mmol/L (98-107); Estimated Glomerular Filt Rate > 60 mL/min (>60); Globulin 2.5 g/dL (1.7-4.1); Glucose 91 mg/dL (80-110); HEMOLYSIS < 15 (0-50); Potassium 4.6 mmol/L (3.4-5.1); Sodium 138 mmol/L (137-145); Total Protein 6.7 g/dL (6.3-8.2); Uric Acid 4.7 mg/dL (2.5-6.2)
[2023-03-03 15:27] LABS: Hemoglobin A1C% w Est Avg Glu 5.5 % (4.0-6.0)
== END ==
PROVIDERS: Family Provider Physician Assistant; PCP Family Medicine; Referring Provider Family Medicine; Visit Provider Family Medicine
DX: M79.673 Pain in unspecified foot (principal); I10 Essential (primary) hypertension; E78.5 Hyperlipidemia, unspecified; Z00.00 Encounter for general adult medical examination without abnormal findings; R73.9 Hyperglycemia, unspecified
CPT/HCPCS: 36415; 80053; 83036; 84550; 85025

== ENCOUNTER → 2023-03-21 10:10 | Outpatient (CLI) | payer OTHER, SELFPAY ==
--- NOTE | 2023-03-21 10:13 | DI.RAD.S_ITS ---
PROCEDURE: XR LUMBAR SPINE MIN 4V INDICATIONS: Back pain TECHNIQUE: 5 views of the lumbar spine were acquired, including bilateral oblique views. COMPARISON: [facility], CR, XR LUMBAR SPINE WITH FLEXION EXTENSION 5 VIEWS, 08/05/2021, 10:36. FINDINGS: Bones: 5 nonrib-bearing vertebrae are present. Grade 1 anterolisthesis of L4 on L5, presumably due to facet arthrosis. Severe disc height loss at L1-2, with opposing endplate sclerosis. Moderate to severe disc height loss at L5-S1. Moderate disc height loss at remaining levels. Facet arthrosis L4 through S1. Anterior wedging of L1. Soft tissues: Overlying bowel gas pattern is normal. No suspicious soft tissue calcifications. Oblique images: No pars defects. IMPRESSION: Anterior wedging of L1, slightly progressed since 08/05/2021. Advanced degenerative disc disease at L1-2 and L5-S1, progressed from prior. Moderate disc height loss at remaining levels. Dictated by: Daniel Silverman M.D. on 03/21/2023 at 12:18 Approved by: Daniel Silverman M.D. on 03/21/2023 at 12:21
== END ==
PROVIDERS: Family Provider Physician Assistant; PCP Family Medicine; Referring Provider Family Medicine; Visit Provider Family Medicine
DX: M51.36 Other intervertebral disc degeneration, lumbar region (principal); M51.37 Other intervertebral disc degeneration, lumbosacral region; M48.56XA Collapsed vertebra, not elsewhere classified, lumbar region, initial encounter for fracture; M54.9 Dorsalgia, unspecified; G89.29 Other chronic pain
CPT/HCPCS: 72110

== ENCOUNTER → 2023-05-31 15:13 | Outpatient (CLI) | payer OTHER, SELFPAY | PROVIDERS: Family Provider Physician Assistant; PCP Family Medicine; Visit Provider Nurse Practitioner Family | DX: L98.9 Disorder of the skin and subcutaneous tissue, unspecified (principal) | CPT/HCPCS: 87070; 87075; 87205; 87252 ==

== ENCOUNTER → 2023-07-06 18:23 | Outpatient (CLI) | payer OTHER, SELFPAY ==
--- NOTE | 2023-07-06 18:31 | DI.RAD.S_ITS ---
PROCEDURE: XR SHOULDER RT MIN 2V INDICATIONS: Right shoulder strain TECHNIQUE: 3 views of the shoulder were acquired. COMPARISON: None. FINDINGS: Bones: No fractures or dislocations. No suspicious bony lesions. Visualized ribs appear intact. Mild high-riding appearance of the humeral head. Soft tissues: No suspicious soft tissue calcifications. IMPRESSION: High riding appearance of the humeral head, which can be indicative of rotator cuff pathology. Dictated by: Mary Mays M.D. on 07/07/2023 at 14:00 Approved by: Mary Mays M.D. on 07/07/2023 at 14:01
== END ==
PROVIDERS: Family Provider Physician Assistant; PCP Family Medicine; Referring Provider Family Medicine; Visit Provider Family Medicine
DX: S46.911A Strain of unspecified muscle, fascia and tendon at shoulder and upper arm level, right arm, initial encounter (principal); X58.XXXA Exposure to other specified factors, initial encounter
CPT/HCPCS: 73030

== ENCOUNTER → 2023-07-10 10:43 | Outpatient (CLI) | payer OTHER, SELFPAY ==
--- NOTE | 2023-07-10 11:04 | DI.MRI.S_ITS ---
PROCEDURE: MR LUMBAR SPINE WO CON INDICATIONS: Back pain TECHNIQUE: Noncontrast sagittal T1 spin echo and T2 fast echo, sagittal STIR, and T2 fast spin echo through the lumbar spine. In cases with scoliosis, additional coronal T2 fast spin echo may be performed. COMPARISON: [facility], CR, XR LUMBAR SPINE MIN 4V, 03/21/2023, 10:24. [facility], MR, MR LUMBAR SPINE WO CON, 08/14/2021, 13:16. FINDINGS: Image quality: Excellent. Alignment and Curvature: 5 lumbar type vertebral bodies are present by plain film. There is loss of normal lumbar lordosis. 4 mm of retrolisthesis of L1 on L2 and L2 on L3. 3 mm of retrolisthesis of L3 on L4. 6 mm of anterolisthesis of L4 on L5. Bone Marrow: Marrow is of normal overall signal. No acute vertebral body compression fractures. There is mild chronic wedging of L1. There is increased, severe reactive signal within the endplates adjacent to the L1-L2 intervertebral disc. Increased, moderate reactive signal within the endplates adjacent to the L5-S1 intervertebral disc. Mild reactive signal throughout the remaining lumbar and lower thoracic endplates. Healed bilateral sacral insufficiency fractures are present. Spinal Cord: Conus medullaris terminates at the upper L2 level. Visualized cord demonstrates normal signal and size. Paraspinous Soft Tissues: No paravertebral masses. Left renal cysts are present. T12-L1: Moderate disc height loss and desiccation. Mild diffuse disc bulge. Mild canal stenosis. No foraminal stenosis. No significant change. L1-L2: Severe disc height loss and desiccation. Mild diffuse disc bulge with superimposed broad-based right posterolateral protrusion. Mild canal stenosis. Mild bilateral foraminal stenosis. No significant change. L2-L3: Moderate disc height loss and desiccation. Mild diffuse disc bulge. Mild facet and ligamentum flavum hypertrophy. Mild canal stenosis. Mild bilateral foraminal stenosis. No significant change. L3-L4: Mild disc desiccation and diffuse disc bulge. Mild bilateral facet and ligamentum flavum hypertrophy. Mild canal stenosis. Mild bilateral foraminal stenosis. No significant change. L4-L5: Mild disc height loss and desiccation. Mild diffuse disc bulge. Mild facet and ligamentum flavum hypertrophy. Mild canal stenosis. Moderate subarticular foraminal stenosis bilaterally. No significant change. L5-S1: Severe disc height loss and desiccation. Mild diffuse disc bulge with small superimposed central protrusion. Mild bilateral facet hypertrophy. Mild canal stenosis. Mild right and moderate left subarticular foraminal stenosis. No significant change. IMPRESSION: 1. Multilevel degenerative disc and facet disease, as well as ligamentum flavum hypertrophy and epidural lipomatosis. 2. Mild multilevel canal stenoses. 3. Multilevel foraminal stenoses, worst at L4-L5 and L5-S1 where there are moderate foraminal stenoses. Dictated by: Sumeet Ibarra M.D. on 07/10/2023 at 11:38 Approved by: Sumeet Ibarra M.D. on 07/10/2023 at 11:45
== END ==
PROVIDERS: Family Provider Physician Assistant; PCP Family Medicine; Referring Provider Family Medicine; Visit Provider Family Medicine
DX: M51.36 Other intervertebral disc degeneration, lumbar region (principal); M51.37 Other intervertebral disc degeneration, lumbosacral region; M47.816 Spondylosis without myelopathy or radiculopathy, lumbar region; M47.817 Spondylosis without myelopathy or radiculopathy, lumbosacral region; M48.061 Spinal stenosis, lumbar region without neurogenic claudication; M48.07 Spinal stenosis, lumbosacral region; M54.9 Dorsalgia, unspecified; G89.29 Other chronic pain
CPT/HCPCS: 72148

== ENCOUNTER → 2023-08-17 11:28 | Outpatient (CLI) | payer OTHER, SELFPAY ==
--- NOTE | 2023-08-17 11:29 | DI.MRI.S_ITS ---
PROCEDURE: MR SHOULDER RT WO CON INDICATIONS: right shoulder injury TECHNIQUE: Noncontrast oblique coronal T2 fast spin echo with fat saturation, oblique sagittal T1 spin echo and T2 fast spin echo with fat saturation, axial T1 spin echo and T2 fast spin echo with fat saturation through the shoulder. COMPARISON: [facility], CR, XR SHOULDER RT MIN 2V, 07/06/2023, 18:39. FINDINGS: Image quality: Excellent. Rotator cuff: Focal moderate grade partial intrasubstance tearing of the supraspinatus tendon at the distal insertion measuring 8 mm in anterior-posterior dimension superimposed on moderate to severe supraspinatus and infraspinatus tendinosis. Intrasubstance fluid is seen at the distal infraspinatus myotendinous junction. Teres minor tendon is intact. There is moderate subscapularis tendinosis. Rotator cuff musculature is normal in bulk. Bones and bursae: No acute trabecular bone injury or fracture. Mild surface cartilage irregularity in the glenohumeral joint. Moderate degenerative changes are seen at the acromioclavicular joint with subchondral cystic changes and edema and marginal osteophyte formation. There is a small amount of fluid in the subacromial/subdeltoid bursa. No significant glenohumeral effusion is seen. Capsule and soft tissues: Chronic nondisplaced tearing of the posterior superior labrum with a lobular ganglion cyst measuring 8 x 4 x 4 mm. Moderate proximal biceps long head tendinosis. Partial effacement of the fat signal seen in the rotator interval. Glenohumeral ligaments appear to be intact. IMPRESSION: 1. Moderate grade partial intrasubstance tearing of the supraspinatus tendon at the distal insertion measuring 8 mm in anterior-posterior dimension. Moderate to severe rotator cuff tendinosis. 2. Moderate proximal biceps long head tendinosis. 3. Chronic nondisplaced tearing of the posterior superior labrum with an 8 mm paralabral cyst. 4. Moderate acromioclavicular joint osteoarthrosis. 5. Small subacromial/subdeltoid bursal effusion or mild bursitis. Approved by: Jerson Khan M.D. on 08/18/2023 at 13:37
== END ==
LOC: MRI 11:29
PROVIDERS: Family Provider Physician Assistant; PCP Family Medicine; Referring Provider Family Medicine; Visit Provider Family Medicine
DX: S46.011A Strain of muscle(s) and tendon(s) of the rotator cuff of right shoulder, initial encounter (principal); S43.431A Superior glenoid labrum lesion of right shoulder, initial encounter; M19.011 Primary osteoarthritis, right shoulder; M25.511 Pain in right shoulder; M54.50 Low back pain, unspecified; G89.29 Other chronic pain
CPT/HCPCS: 73221

== ENCOUNTER → 2023-08-28 15:37 | Outpatient (CLI) | payer OTHER, SELFPAY ==
[2023-08-28 17:21] LABS: Add Manual Diff / Slide Review NO; Basophils Absolute Auto 100 /uL (0-100); Eosinophils Absolute Auto 200 /uL (0-450); Eosinophils Percent Auto 2.6 % (2-4); Hematocrit 39.7 % (36-46); Hemoglobin 13.4 g/dL (12.0-16.0); Lymphocytes Absolute Auto 1900 /uL (1100-4500); Lymphocytes Percent Auto 20.2 % (25-40); Mean Corpuscular HGB Conc 33.7 % (30-36); Mean Corpuscular Hemoglobin 31.3 PG (26-34); Mean Corpuscular Volume 92.9 fL (80-100); Monocytes Absolute Auto 700 /uL (0-900); Monocytes Percent Auto 7.5 % (3-14); Neutrophils Absolute Auto 6400 /uL (1500-7000); Neutrophils Percent Auto 68.7 % (50-75); Platelet Count 433 X10^3/uL (150-400); Red Blood Cell Count 4.28 X10^6/uL (4.0-5.2); Red Cell Distribution Width 12.8 % (11.6-14.8); White Blood Cell Count 9.3 X10^3/uL (4.5-11.0)
[2023-08-28 17:58] LABS: Alanine Aminotransferase 20 IU/L (<35); Albumin 4.3 g/dL (3.5-5.0); Albumin Globulin Ratio 1.7 (1.0-2.8); Aspartate Aminotransferase 27 IU/L (14-36); Bilirubin Total 0.5 mg/dL (0.2-1.3); Blood Urea Nitrogen 21 mg/dL (7-17); Calcium 9.1 mg/dL (8.4-10.2); Carbon Dioxide 25 mmol/L (22-32); Chloride 106 mmol/L (98-107); Estimated Glomerular Filt Rate > 60 mL/min (>60); Globulin 2.5 g/dL (1.7-4.1); Glucose 106 mg/dL (80-110); HEMOLYSIS < 15 (0-50); Potassium 3.5 mmol/L (3.4-5.1); Total Protein 6.8 g/dL (6.3-8.2)
[2023-08-28 18:00] LABS: Alkaline Phosphatase 87 U/L (38-126); Lipase 56 U/L (23-300); Sodium 138 mmol/L (137-145)
== END ==
PROVIDERS: Family Provider Physician Assistant; PCP Family Medicine; Referring Provider Family Medicine; Visit Provider Family Medicine
DX: R10.9 Unspecified abdominal pain (principal); R19.7 Diarrhea, unspecified
CPT/HCPCS: 36415; 80053; 83690; 85025

== ENCOUNTER 2023-09-29 09:00 | Outpatient (RCR) | payer OTHER, SELFPAY ==
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
--- NOTE | 2023-08-28 18:27 | PT.OPPOC ---
Physical, Occupational & Speech Therapy At [facility] Current Diagnoses Pain in right shoulder (08/28/23) Muscle weakness (generalized) (08/28/23) Sprain of unspecified rotator cuff capsule, initial encounter (08/28/23) Visit Care Team Role Provider Type Chayito Malhotra PA-C Family Provider Non-Staff Specialty: Medical Address: [address] [place] [address], [id number] Email: Adis Silva MD Attending Provider Physician Primary Care Provider Referring Provider Specialty: Family Practice Address: [address] [place] [address], [id number] Email: [email or web address] Plan Of Care PT-OP-T Assessment and Plan Start: 08/22/23 20:40 Freq: Status: Active Protocol: Document 08/28/23 09:08 LRN (Rec: 08/28/23 09:52 LRN [id number]) Physical Therapy Assessment Rehab Potential Rehabilitation Potential Good Evaluation Complexity Number of Personal Factors/Comorbidities 1-2 Number of Body Systems Impaired 4 or More Clinical Presentation at Evaluation Evolving Impairments Impairments Activity Tolerance,Functional Activities,Pain,Posture,ROM, Strength Goals Three Impairment Decreased R shoulder strength Short Term Goal (STG) Improve R shoulder strength to 4/5 to be able to carry her backpack for work without pain . STG Duration 09/09/23 Care Home Goal (LTG) Improve R shoulder strength to no less than 4+/5 to be able to lift water buckets and mop without help with minimal to no pain for her job. LTG Duration 11/20/23 Two Impairment Decreased R shoulder painfree AROM Impairment Shoulder AROM (deg's): Flex is 130 R, 180 L; ext is 42 R, 55 L; AB is 90 R, 175 L; IR behind the back is: L5 R,T7 L; ER behind head is: suboccipital R, T3 L. Short Term Goal (STG) Pt will demonstrate good knowledge of proper body mechanics for ADLs. STG Duration 09/11/23 Fisher Crab Goal (LTG) Improve R shoulder painfree ROM for dressing, snapping pants, vacuuming. LTG Duration 11/20/23 One Impairment Pt lacks appropriate self care HEP. Short Term Goal (STG) Pt will be educated in nighttime positioning to improve R shoulder strength to be able to sleep 4-5 hrs without waking due to R shoulder pain. STG Duration 09/04/23 Care Home Goal (LTG) Pt will be independent in an effective self care HEP for R shoulder/rotator cuff & core strengthening and mobility ex' s, and neck ex's as appropriate. LTG Duration 11/20/23 Assessment Summary Assessment Pt is a 63 yo female who presents with limited R shoulder ROM, strength and function due to soft tissue dysfunction as recent MRI showed: moderate partial tear of supraspinatus tendon at the distal insertion, mod to severe rotator cuff and mod proximal biceps tendinosis, chronic nondisplaced tearing of the posterior superior labrum with paralabral cyst, subacromial/subdeltoid mild bursitis, & R ACJ osteoarthrosis. Pt works a physical job on the [employer] and is hoping to reduce her R shoulder pain with functional activities and at work. The pt will benefit from skilled physical therapy focusing on improving mobility and strength of her R shoulder as well as modalities to decrease pain/ inflammation, educating pain posture, nighttime positioning and body mechanics to achieve the above stated goals. Physical Therapy Plan Frequency and Duration Frequency of Treatment 2x/Week Duration of treatment (weeks) 12 Plan of Care Start Date 08/28/23 Plan of Care End Date 11/20/23 Therapeutic Interventions Therapeutic Interventions Home Exercise Program,Manual Therapy,Neuromuscular Re- education,Self-Care/Home Management,Soft Tissue Mobilization,Taping, Therapeutic Activities, Therapeutic Exercises Modalities Cold Pack/Ice Massage,Electric Stimulation,Hot Packs, Ultrasound Next Visit Focus/Plan Next Note Type Treatment Note Next Visit Plan Next: Review pec stretch and add R shoulder ROM ex's and RC strengthening. K-tape for ACJ stability and R shoulder posturing. Educating for pain reduction of posture, nighttime positioning and body mechanics. Modalities as needed to decrease pain and inflammation (try US f/b taping). Focus on improving mobility and strength of her R shoulder in light of her soft tissue injuries. Plan of Care Dates Plan of Care Start Date 08/28/23 Plan of Care End Date 11/20/23 Electronically Signed by: Prisca Guerin, PT 08/29/23 0927 If you are in agreement with this Plan of Care, please return a signed and dated copy. I have reviewed this Plan of Care and certify that the skilled therapy services above are required to meet the patient?s needs. Physician Signature Date Printed Name and Credentials Clinical Instructor Signature Printed Name and Credentials
--- NOTE | 2023-09-05 14:50 | PT.OTN ---
Current Diagnoses Pain in right shoulder (09/05/23) Muscle weakness (generalized) (09/05/23) Sprain of unspecified rotator cuff capsule, initial encounter (09/05/23) Physical Therapy Treatment Note PT-OP-A Visit Information Start: 08/22/23 20:40 Freq: Status: Active Protocol: Document 09/05/23 10:06 SW (Rec: 09/05/23 10:30 SW [id number]) Out-Patient Physical Therapy Visit Information Visit Information Visit Type Treatment Note Visit Start Time 09:45 Visit Stop Time 10:25 Visit Number 3 Number of FINANCIAL SERVICES SPECIALIST Visits 2 Precautions Precautions PMH: L TKA, L JAZLYN, carpel tunnel surgery PT-OP-B Current Condition Start: 08/22/23 20:40 Freq: Status: Active Protocol: Document 08/28/23 09:08 LRN (Rec: 08/28/23 09:52 LRN [id number]) Current Condition History of Current Condition Onset Date June 2023 Current Complaints Pain at R ACJ off/on a lot during the day, worse at night or carrying. History of Current Condition At work was putting together a mop (pushing mop handle into the mop head), fingers got caught and while trying to withdrawl fingers, felt a sharp burning pain at wrist all the way up to the shoulder (anterior arm) up to ACJ. Now is tender with palpation at R ACJ. Prior Treatments and Tests MRI taken 08/17/23. 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 Treatment Goals Patient/Caregiver Goals Pt goals: Be able to lift buckets and mop with water without help without pain, Improve R shoulder strength to be able to sleep 4-5 hrs without waking due to R shoulder pain. Improve R shoulder strength to be able to carry her backpack for work without pain. Improve R shoulder painfree ROM for dressing, snapping pants, vacuuming. 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 PT-OP-C Subjective Start: 08/22/23 20:40 Freq: Status: Active Protocol: Document 09/05/23 10:06 SW (Rec: 09/05/23 10:30 SW [id number]) OP-PT Subjective Patient Comments Patient Comments Pt reports k tape seemed to help some, though still feeling pain once starting to work again. PT-OP-E Functional Tests Start: 08/22/23 20:40 Freq: Status: Active Protocol: Document 08/28/23 09:08 LRN (Rec: 08/28/23 09:52 LRN [id number]) Functional Tests Apley's Scratch Test Action 3- Right T3 PT-OP-H Neuro Start: 08/22/23 20:40 Freq: Status: Active Protocol: Document 08/28/23 09:08 LRN (Rec: 08/28/23 09:52 LRN [id number]) Sensation Evaluation Gross Sensation Gross Sensation WNL PT-OP-J Posture/Palpation/Skin Start: 08/22/23 20:40 Freq: Status: Active Protocol: Document 08/28/23 09:08 LRN (Rec: 08/28/23 09:52 LRN [id number]) Posture Evaluation Position Standing Shoulder Posture (R) Rounded,(R) Forward Palpation Assessment Location R shoulder Palpation Location AC jt, Supraspinatus and biceps tendon attachment at humeral head Palpation Findings Tenderness PT-OP-K Range of Motion Start: 08/22/23 20:40 Freq: Status: Active Protocol: Document 08/28/23 09:08 LRN (Rec: 08/28/23 09:52 LRN [id number]) Shoulder Goniometric Range of Motion Shoulder Right Active Testing Position Sitting Flexion 130 Extension 42 Abduction 90 Internal Rotation Behind Back (text) L5 Comments Behind head - reach to suboccipital centerline location Left Active Flexion 180 Extension 55 Abduction 175 Internal Rotation Behind Back (text) T7 Comments Behind head - T3 spinous process PT-OP-M Strength Start: 08/22/23 20:40 Freq: Status: Active Protocol: Document 08/28/23 09:08 LRN (Rec: 08/28/23 09:52 LRN [id number]) Shoulder Strength Shoulder Manual Muscle Testing Left Abduction (C5) 3 Fair External Rotation 3 Fair Internal Rotation 3 Fair Comments Strength is 5/5 except as indicated above. Right Flexion 2 Poor Extension 4- Good- Abduction (C5) 2 Poor Adduction 3 Fair External Rotation 2+ Poor+ Internal Rotation 2+ Poor+ PT-OP-Q Treatments Start: 08/22/23 20:40 Freq: Status: Active Protocol: Document 09/05/23 10:06 SW (Rec: 09/05/23 10:30 [id number]) Therapeutic Exercises Supine Exercises Pec stretch Supine Exercise Name Pec stretch on foam roll, pillow under R arm leaving shldr to move Side right Reps/Minutes 5' Sitting Exercises ROM Sitting Exercise Name PROM- pullies abd/scaption Self-Care/Home Management Treatment Education Patient Education Body Mechanics,Home Exercise Program,Joint Protection,Pain Management,Posture Other Education sleep position, body mechanics /lifting techniques for job, posture, modalities for pain control/inflammation PT-OP-R Modalities Start: 08/22/23 20:40 Freq: Status: Active Protocol: Document 09/05/23 10:06 SW (Rec: 09/05/23 10:30 [id number]) Ultrasound Therapy Treatment Ultrasound Patient Position Supine Coupling Medium Ultrasound Gel Applicator Size (cm2) 5 Frequency Setting (mHz) 1 Mode Setting Continuous Duty Cycle 100% Intensity Setting (w/cm2) 0.8 Comments R shoulder, posteriolateral, frequent followup for pt tolerance PT-OP-T Assessment and Plan Start: 08/22/23 20:40 Freq: Status: Active Protocol: Document 09/05/23 10:06 (Rec: 09/05/23 10:30 [id number]) Physical Therapy Assessment Goals Three Impairment Decreased R shoulder strength Impairment Be able to lift buckets and mop with water without help without pain, Improve R shoulder strength to be able to sleep 4-5 hrs without waking due to R shoulder pain. Improve R shoulder strength to be able to carry her backpack for work without pain. Improve R shoulder painfree ROM for dressing, snapping pants, vacumming. Short Term Goal (STG) Improve R shoulder strength to 4/5 to be able to carry her backpack for work without pain . STG Duration 09/09/23 Marine Engineer Goal (LTG) Improve R shoulder strength to no less than 4+/5 to be able to lift water buckets and mop without help with minimal to no pain for her job. LTG Duration 11/20/23 Two Impairment Decreased R shoulder painfree AROM Impairment Shoulder AROM (deg's): Flex is 130 R, 180 L; ext is 42 R, 55 L; AB is 90 R, 175 L; IR behind the back is: L5 R,T7 L; ER behind head is: suboccipital R, T3 L. Short Term Goal (STG) Pt will demonstrate good knowledge of proper body mechanics for ADLs. 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 LTG Duration 11/20/23 One Impairment Pt lacks appropriate self care HEP. Impairment Be able to lift buckets and mop with water without help without pain, Improve R shoulder strength to be able to sleep 4-5 hrs without waking due to R shoulder pain. Improve R shoulder strength to be able to carry her backpack for work without pain. Short Term Goal (STG) Pt will be educated in nighttime positioning to improve R shoulder strength to be able to sleep 4-5 hrs without waking due to R shoulder pain. 09/05/23- educated pt on proper night time sleep positioning STG Duration 09/04/23 Marine Engineer Goal (LTG) Pt will be independent in an effective self care HEP for R shoulder/rotator cuff & core strengthening and mobility ex' s, and neck ex's as appropriate. LTG Duration 11/20/23 Assessment Summary Assessment Reviewed pec stretch per pt plan, pt tolerated well with distal humerus pillow support. Extended time on pt education this session, discussed/ executed sleep positioning for correct alignment, sitting/ standing posture and mechanics with activities necessary for pt work, issued HEP HO for posture and mechanics. Initiated gentle PROM with pulleys this session, R shoulder fwd flex, scaption, instructed pt to stay within tolerable range that does not increase pain. Pt unsure of tolerance to US last session, wanted to trial US again, frequent request for pt feedback, tolerated lower intensity well. Removed K tape , skin fully intact, minimal redness present, appeared dry, pt reports she thinks it may have helped, though felt the same pain when starting to work again, did not re apply this session to allow skin time between application, instructed pt on safe removal. Educated pt on modalities and physiological effects with modalites for pain control/ inflammation. Physical Therapy Plan Frequency and Duration Frequency of Treatment 2x/Week Duration of treatment (weeks) 12 Plan of Care Start Date 08/28/23 Plan of Care End Date 11/20/23 Therapeutic Interventions Therapeutic Interventions Home Exercise Program,Manual Therapy,Neuromuscular Re- education,Self-Care/Home Management,Soft Tissue Mobilization,Taping, Therapeutic Activities, Therapeutic Exercises Modalities Cold Pack/Ice Massage,Electric Stimulation,Hot Packs, Ultrasound Next Visit Focus/Plan Next Note Type Treatment Note Next Visit Plan Next: add R shoulder ROM ex's (intitiated 09/05/23, berta) and RC strengthening . K-tape for ACJ stability and R shoulder posturing. Educating for pain reduction of posture, nighttime positioning and body mechanics (09/05/23). Modalities as needed to decrease pain and inflammation (try US f/b taping). Focus on improving mobility and strength of her R shoulder in light of her soft tissue injuries.
--- NOTE | 2023-09-05 14:56 | PT.OTN ---
Current Diagnoses Pain in right shoulder (09/05/23) Muscle weakness (generalized) (09/05/23) Sprain of unspecified rotator cuff capsule, initial encounter (09/05/23) Physical Therapy Treatment Note PT-OP-A Visit Information Start: 08/22/23 20:40 Freq: Status: Active Protocol: Document 09/05/23 10:06 SW (Rec: 09/05/23 10:30 SW [id number]) Out-Patient Physical Therapy Visit Information Visit Information Visit Type Treatment Note Visit Start Time 09:45 Visit Stop Time 10:25 Visit Number 3 Number of CLOTH BLEACHING RANGE TENDER Visits 2 Precautions Precautions PMH: L TKA, L JAZLYN, carpel tunnel surgery PT-OP-B Current Condition Start: 08/22/23 20:40 Freq: Status: Active Protocol: Document 08/28/23 09:08 LRN (Rec: 08/28/23 09:52 LRN [id number]) Current Condition History of Current Condition Onset Date June 2023 Current Complaints Pain at R ACJ off/on a lot during the day, worse at night or carrying. History of Current Condition At work was putting together a mop (pushing mop handle into the mop head), fingers got caught and while trying to withdrawl fingers, felt a sharp burning pain at wrist all the way up to the shoulder (anterior arm) up to ACJ. Now is tender with palpation at R ACJ. Prior Treatments and Tests MRI taken 08/17/23. 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 Treatment Goals Patient/Caregiver Goals Pt goals: Be able to lift buckets and mop with water without help without pain, Improve R shoulder strength to be able to sleep 4-5 hrs without waking due to R shoulder pain. Improve R shoulder strength to be able to carry her backpack for work without pain. Improve R shoulder painfree ROM for dressing, snapping pants, vacuuming. 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 PT-OP-C Subjective Start: 08/22/23 20:40 Freq: Status: Active Protocol: Document 09/05/23 10:06 SW (Rec: 09/05/23 10:30 SW [id number]) OP-PT Subjective Patient Comments Patient Comments Pt reports k tape seemed to help some, though still feeling pain once starting to work again. PT-OP-E Functional Tests Start: 08/22/23 20:40 Freq: Status: Active Protocol: Document 08/28/23 09:08 LRN (Rec: 08/28/23 09:52 LRN [id number]) Functional Tests Apley's Scratch Test Action 3- Right T3 PT-OP-H Neuro Start: 08/22/23 20:40 Freq: Status: Active Protocol: Document 08/28/23 09:08 LRN (Rec: 08/28/23 09:52 LRN [id number]) Sensation Evaluation Gross Sensation Gross Sensation WNL PT-OP-J Posture/Palpation/Skin Start: 08/22/23 20:40 Freq: Status: Active Protocol: Document 08/28/23 09:08 LRN (Rec: 08/28/23 09:52 LRN [id number]) Posture Evaluation Position Standing Shoulder Posture (R) Rounded,(R) Forward Palpation Assessment Location R shoulder Palpation Location AC jt, Supraspinatus and biceps tendon attachment at humeral head Palpation Findings Tenderness PT-OP-K Range of Motion Start: 08/22/23 20:40 Freq: Status: Active Protocol: Document 08/28/23 09:08 LRN (Rec: 08/28/23 09:52 LRN [id number]) Shoulder Goniometric Range of Motion Shoulder Right Active Testing Position Sitting Flexion 130 Extension 42 Abduction 90 Internal Rotation Behind Back (text) L5 Comments Behind head - reach to suboccipital centerline location Left Active Flexion 180 Extension 55 Abduction 175 Internal Rotation Behind Back (text) T7 Comments Behind head - T3 spinous process PT-OP-M Strength Start: 08/22/23 20:40 Freq: Status: Active Protocol: Document 08/28/23 09:08 LRN (Rec: 08/28/23 09:52 LRN [id number]) Shoulder Strength Shoulder Manual Muscle Testing Left Abduction (C5) 3 Fair External Rotation 3 Fair Internal Rotation 3 Fair Comments Strength is 5/5 except as indicated above. Right Flexion 2 Poor Extension 4- Good- Abduction (C5) 2 Poor Adduction 3 Fair External Rotation 2+ Poor+ Internal Rotation 2+ Poor+ PT-OP-Q Treatments Start: 08/22/23 20:40 Freq: Status: Active Protocol: Document 09/05/23 10:06 (Rec: 09/05/23 10:30 [id number]) Therapeutic Exercises Supine Exercises Pec stretch Supine Exercise Name Pec stretch on foam roll, pillow under R arm leaving shldr to move Side right Comments distal humerus support for pt tolerance Sitting Exercises ROM Sitting Exercise Name PROM Wand>pullies- abd/ scaption/fwd flex Side right Equipment Used pullies, wand Reps/Minutes 8' Comments cued for gentle ROM, instructed pt in range that does not increase pain Self-Care/Home Management Treatment Education Patient Education Body Mechanics,Home Exercise Program,Joint Protection,Pain Management,Posture Other Education sleep position, body mechanics /lifting techniques for job, posture, modalities for pain control/inflammation PT-OP-R Modalities Start: 08/22/23 20:40 Freq: Status: Active Protocol: Document 09/05/23 10:06 (Rec: 09/05/23 10:30 [id number]) Ultrasound Therapy Treatment Ultrasound Patient Position Supine Coupling Medium Ultrasound Gel Applicator Size (cm2) 5 Frequency Setting (mHz) 1 Mode Setting Continuous Duty Cycle 100% Intensity Setting (w/cm2) 0.8 Comments R shoulder, posteriolateral, frequent followup for pt tolerance PT-OP-T Assessment and Plan Start: 08/22/23 20:40 Freq: Status: Active Protocol: Document 09/05/23 10:06 (Rec: 09/05/23 10:30 [id number]) Physical Therapy Assessment Goals Three Impairment Decreased R shoulder strength Impairment Be able to lift buckets and mop with water without help without pain, Improve R shoulder strength to be able to sleep 4-5 hrs without waking due to R shoulder pain. Improve R shoulder strength to be able to carry her backpack for work without pain. Improve R shoulder painfree ROM for dressing, snapping pants, vacumming. Short Term Goal (STG) Improve R shoulder strength to 4/5 to be able to carry her backpack for work without pain . STG Duration 09/09/23 Eligibility Worker Goal (LTG) Improve R shoulder strength to no less than 4+/5 to be able to lift water buckets and mop without help with minimal to no pain for her job. LTG Duration 11/20/23 Two Impairment Decreased R shoulder painfree AROM Impairment Shoulder AROM (deg's): Flex is 130 R, 180 L; ext is 42 R, 55 L; AB is 90 R, 175 L; IR behind the back is: L5 R,T7 L; ER behind head is: suboccipital R, T3 L. Short Term Goal (STG) Pt will demonstrate good knowledge of proper body mechanics for ADLs. 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 LTG Duration 11/20/23 One Impairment Pt lacks appropriate self care HEP. Impairment Be able to lift buckets and mop with water without help without pain, Improve R shoulder strength to be able to sleep 4-5 hrs without waking due to R shoulder pain. Improve R shoulder strength to be able to carry her backpack for work without pain. Short Term Goal (STG) Pt will be educated in nighttime positioning to improve R shoulder strength to be able to sleep 4-5 hrs without waking due to R shoulder pain. 09/05/23- educated pt on proper night time sleep positioning STG Duration 09/04/23 Detention Goal (LTG) Pt will be independent in an effective self care HEP for R shoulder/rotator cuff & core strengthening and mobility ex' s, and neck ex's as appropriate. LTG Duration 11/20/23 Assessment Summary Assessment Reviewed pec stretch per pt plan, pt tolerated well with distal humerus pillow support. Extended time on pt education this session, discussed/ executed sleep positioning for correct alignment, sitting/ standing posture and mechanics with activities necessary for pt work, issued HEP HO for posture and mechanics. Initiated gentle PROM with pulleys this session, R shoulder fwd flex, scaption, instructed pt to stay within tolerable range that does not increase pain. Pt unsure of tolerance to US last session, wanted to trial US again, frequent request for pt feedback, tolerated lower intensity well. Removed K tape , skin fully intact, minimal redness present, appeared dry, pt reports she thinks it may have helped, though felt the same pain when starting to work again, did not re apply this session to allow skin time between application, instructed pt on safe removal. Educated pt on modalities and physiological effects with modalites for pain control/ inflammation. Physical Therapy Plan Frequency and Duration Frequency of Treatment 2x/Week Duration of treatment (weeks) 12 Plan of Care Start Date 08/28/23 Plan of Care End Date 11/20/23 Therapeutic Interventions Therapeutic Interventions Home Exercise Program,Manual Therapy,Neuromuscular Re- education,Self-Care/Home Management,Soft Tissue Mobilization,Taping, Therapeutic Activities, Therapeutic Exercises Modalities Cold Pack/Ice Massage,Electric Stimulation,Hot Packs, Ultrasound Next Visit Focus/Plan Next Note Type Treatment Note Next Visit Plan Next: add R shoulder ROM ex's (intitiated 09/05/23, cheryl and eliseo) and RC strengthening . K-tape for ACJ stability and R shoulder posturing. Educating for pain reduction of posture, nighttime positioning and body mechanics (09/05/23). Modalities as needed to decrease pain and inflammation (try US f/b taping). Focus on improving mobility and strength of her R shoulder in light of her soft tissue injuries.
--- NOTE | 2023-09-07 16:04 | PT.OTN ---
Current Diagnoses Pain in right shoulder (09/07/23) Muscle weakness (generalized) (09/07/23) Sprain of unspecified rotator cuff capsule, initial encounter (09/07/23) Physical Therapy Treatment Note PT-OP-A Visit Information Start: 08/22/23 20:40 Freq: Status: Active Protocol: Document 09/07/23 13:42 LRN (Rec: 09/07/23 14:25 LRN [id number]) Out-Patient Physical Therapy Visit Information Visit Information Visit Type Treatment Note Visit Start Time 13:42 Visit Stop Time 14:22 Visit Number 4 Evaluation Information Evaluation Date 08/28/23 Precautions Precautions PMH: L TKA, L JAZLYN, carpel tunnel surgery PT-OP-B Current Condition Start: 08/22/23 20:40 Freq: Status: Active Protocol: Document 08/28/23 09:08 LRN (Rec: 08/28/23 09:52 LRN [id number]) Current Condition History of Current Condition Onset Date June 2023 Current Complaints Pain at R ACJ off/on a lot during the day, worse at night or carrying. History of Current Condition At work was putting together a mop (pushing mop handle into the mop head), fingers got caught and while trying to withdrawl fingers, felt a sharp burning pain at wrist all the way up to the shoulder (anterior arm) up to ACJ. Now is tender with palpation at R ACJ. Prior Treatments and Tests MRI taken 08/17/23. 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 Treatment Goals Patient/Caregiver Goals Pt goals: Be able to lift buckets and mop with water without help without pain, Improve R shoulder strength to be able to sleep 4-5 hrs without waking due to R shoulder pain. Improve R shoulder strength to be able to carry her backpack for work without pain. Improve R shoulder painfree ROM for dressing, snapping pants, vacuuming. 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 PT-OP-C Subjective Start: 08/22/23 20:40 Freq: Status: Active Protocol: Document 09/07/23 13:42 LRN (Rec: 09/07/23 14:25 LRN [id number]) OP-PT Subjective Patient Comments Patient Comments States sore from work. Wakes her up at night. Sore to touch. Not getting better. Has founc sleeping to be less painful after education, but still hurts 2x because of rolling onto shoulder. Has garbage she has to toss and throw away. Patient Questionnaires Quick Dash- Upper Extremity Quick Dash UE Score 38.6 (all questions answered) Quick Dash UE Impairment 20 to 39% Impaired (Score 20- 39) PT-OP-E Functional Tests Start: 08/22/23 20:40 Freq: Status: Active Protocol: Document 08/28/23 09:08 LRN (Rec: 08/28/23 09:52 LRN [id number]) Functional Tests Apley's Scratch Test Action 3- Right T3 PT-OP-H Neuro Start: 08/22/23 20:40 Freq: Status: Active Protocol: Document 08/28/23 09:08 LRN (Rec: 08/28/23 09:52 LRN [id number]) Sensation Evaluation Gross Sensation Gross Sensation WNL PT-OP-J Posture/Palpation/Skin Start: 08/22/23 20:40 Freq: Status: Active Protocol: Document 08/28/23 09:08 LRN (Rec: 08/28/23 09:52 LRN [id number]) Posture Evaluation Position Standing Shoulder Posture (R) Rounded,(R) Forward Palpation Assessment Location R shoulder Palpation Location AC jt, Supraspinatus and biceps tendon attachment at humeral head Palpation Findings Tenderness PT-OP-K Range of Motion Start: 08/22/23 20:40 Freq: Status: Active Protocol: Document 08/28/23 09:08 LRN (Rec: 08/28/23 09:52 LRN [id number]) Shoulder Goniometric Range of Motion Shoulder Right Active Testing Position Sitting Flexion 130 Extension 42 Abduction 90 Internal Rotation Behind Back (text) L5 Comments Behind head - reach to suboccipital centerline location Left Active Flexion 180 Extension 55 Abduction 175 Internal Rotation Behind Back (text) T7 Comments Behind head - T3 spinous process PT-OP-M Strength Start: 08/22/23 20:40 Freq: Status: Active Protocol: Document 08/28/23 09:08 LRN (Rec: 08/28/23 09:52 LRN [id number]) Shoulder Strength Shoulder Manual Muscle Testing Left Abduction (C5) 3 Fair External Rotation 3 Fair Internal Rotation 3 Fair Comments Strength is 5/5 except as indicated above. Right Flexion 2 Poor Extension 4- Good- Abduction (C5) 2 Poor Adduction 3 Fair External Rotation 2+ Poor+ Internal Rotation 2+ Poor+ PT-OP-Q Treatments Start: 08/22/23 20:40 Freq: Status: Active Protocol: Document 09/07/23 13:42 LRN (Rec: 09/07/23 14:25 LRN [id number]) Therapeutic Exercises Other Exercises Nuha Other Exercise Name Shoulder flex, AB Reps/Minutes 10 SH x 5' Comments Cued to hold 10 SH & hold in painfree range. Therapeutic Activity Therapeutic Activity Training for ADLs Name Sweeping, mopping, lifting, pouring from bucket. Reps/Minutes 22' Comments Training for sweeping in both directioins and for using push broom as well. Manual Therapy Treatment Taping R shoulder Body Location R ACJ & Biceps tend at the bicipital groove. Treatment Focus R ACJ - stability, R Biceps tendon - edema management Type of Tape Kinesio Tape Skin Inspection good Comments ACJ - Star taping Biceps - one I-strip for ms relaxation and inflammation. PT-OP-R Modalities Start: 08/22/23 20:40 Freq: Status: Active Protocol: Document 09/05/23 10:06 SW (Rec: 09/05/23 10:30 SW [id number]) Ultrasound Therapy Treatment Ultrasound Patient Position Supine Coupling Medium Ultrasound Gel Applicator Size (cm2) 5 Frequency Setting (mHz) 1 Mode Setting Continuous Duty Cycle 100% Intensity Setting (w/cm2) 0.8 Comments R shoulder, posteriolateral, frequent followup for pt tolerance PT-OP-T Assessment and Plan Start: 08/22/23 20:40 Freq: Status: Active Protocol: Document 09/07/23 13:42 LRN (Rec: 09/07/23 14:25 LRN [id number]) Physical Therapy Assessment Goals Three Impairment Decreased R shoulder strength Impairment Be able to lift buckets and mop with water without help without pain, Improve R shoulder strength to be able to sleep 4-5 hrs without waking due to R shoulder pain. Improve R shoulder strength to be able to carry her backpack for work without pain. Improve R shoulder painfree ROM for dressing, snapping pants, vacumming. Short Term Goal (STG) Improve R shoulder strength to 4/5 to be able to carry her backpack for work without pain . STG Duration 09/09/23 Seismic Computer Goal (LTG) Improve R shoulder strength to no less than 4+/5 to be able to lift water buckets and mop without help with minimal to no pain for her job. LTG Duration 11/20/23 Two Impairment Decreased R shoulder painfree AROM Impairment Shoulder AROM (deg's): Flex is 130 R, 180 L; ext is 42 R, 55 L; AB is 90 R, 175 L; IR behind the back is: L5 R,T7 L; ER behind head is: suboccipital R, T3 L. Short Term Goal (STG) Pt will demonstrate good knowledge of proper body mechanics for ADLs. 09/05/23- educated pt on proper body mechanics for ADLs, issued HEP HOs. 09/07/23 Review of proper body mechanics for ADLs and for her workplace. Pt needed practice and demonstrations on how to move proper with recommendations shown on completing some tasks ( sweeping, mopping, lifting buckets w/less water, and pouring out water from buckets ). STG Duration 09/11/23 (09/07/23: MET GOAL) Seismic Computer Goal (LTG) Improve R shoulder painfree ROM for dressing, snapping pants, vacuuming. LTG Duration 11/20/23 One Impairment Pt lacks appropriate self care HEP. Impairment Be able to lift buckets and mop with water without help without pain, Improve R shoulder strength to be able to sleep 4-5 hrs without waking due to R shoulder pain. Improve R shoulder strength to be able to carry her backpack for work without pain. Short Term Goal (STG) Pt will be educated in nighttime positioning to improve R shoulder strength to be able to sleep 4-5 hrs without waking due to R shoulder pain. 09/05/23- educated pt on proper night time sleep positioning 09/07/23 review of nighttime positioning with pt waking 2x during the night. STG Duration 09/04/23 progressed 09/07/19 Care Home Goal (LTG) Pt will be independent in an effective self care HEP for R shoulder/rotator cuff & core strengthening and mobility ex' s, and neck ex's as appropriate. LTG Duration 11/20/23 Assessment Summary Assessment 63 yo female w/limited R shoulder ROM, strength and function due to recent soft tissue dys per MRI: moderate partial tear of supraspinatus tendon at the distal insertion , mod to severe rotator cuff and mod proximal biceps tendinosis, chronic nondisplaced tearing of the posterior superior labrum with paralabral cyst, subacromial/ subdeltoid mild bursitis, & R ACJ osteoarthrosis. Today, pt shows fairly good understanding of body mechanics for ADLs, but needed specific training/review for sweeping and demonstrations of lifting buckets and dumping bucket as if water was in it. Pt shows very limited painfree R shoulder ROM due to pain. US was perceived as painful; therefore DC US for now. Physical Therapy Plan Frequency and Duration Frequency of Treatment 2x/Week Duration of treatment (weeks) 12 Plan of Care Start Date 08/28/23 Plan of Care End Date 11/20/23 Next Visit Focus/Plan Next Note Type Treatment Note Next Visit Plan Next: add HEP: R shoulder ROM ex's (intitiated 09/05/23, pulleys and wand) and RC strengthening. Assess response to K-tape for ACJ stability and biceps tendon inflammation. Might try R shoulder posturing taping if helpful to reduce pain. Modalities as needed to decrease pain and inflammation . Focus on improving mobility and strength of her R shoulder in light of her soft tissue injuries.
--- NOTE | 2023-09-12 12:35 | PT.OTN ---
Current Diagnoses Pain in right shoulder (09/12/23) Muscle weakness (generalized) (09/12/23) Sprain of unspecified rotator cuff capsule, initial encounter (09/12/23) Physical Therapy Treatment Note PT-OP-A Visit Information Start: 08/22/23 20:40 Freq: Status: Active Protocol: Document 09/12/23 11:25 NBM (Rec: 09/12/23 12:35 NBM [id number]) Out-Patient Physical Therapy Visit Information Visit Information Visit Type Treatment Note Visit Note Short session due to pt in bathroom and requests to make phone call for work start of session. Visit Start Time 11:26 Visit Stop Time 12:10 Visit Number 5 Number of GENETIC TECHNOLOGIST Visits 1 Evaluation Information Evaluation Date 08/28/23 Precautions Precautions PMH: L TKA, L JAZLYN, [place] carpel tunnel surgery PT-OP-B Current Condition Start: 08/22/23 20:40 Freq: Status: Active Protocol: Document 08/28/23 09:08 LRN (Rec: 08/28/23 09:52 LRN [id number]) Current Condition History of Current Condition Onset Date June 2023 Current Complaints Pain at R ACJ off/on a lot during the day, worse at night or carrying. History of Current Condition At work was putting together a mop (pushing mop handle into the mop head), fingers got caught and while trying to withdrawl fingers, felt a sharp burning pain at wrist all the way up to the shoulder (anterior arm) up to ACJ. Now is tender with palpation at R ACJ. Prior Treatments and Tests MRI taken 08/17/23. 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 Treatment Goals Patient/Caregiver Goals Pt goals: Be able to lift buckets and mop with water without help without pain, Improve R shoulder strength to be able to sleep 4-5 hrs without waking due to R shoulder pain. Improve R shoulder strength to be able to carry her backpack for work without pain. Improve R shoulder painfree ROM for dressing, snapping pants, vacuuming. 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 PT-OP-C Subjective Start: 08/22/23 20:40 Freq: Status: Active Protocol: Document 09/12/23 11:25 NBM (Rec: 09/12/23 12:35 NBM [id number]) OP-PT Subjective Patient Comments Patient Comments Joanne reports she's all right. She doesn't think the KT tape helps. She's been more mindful of how she does her work but mopping is still painful when pushing away or having to reach the mop under things. She tripped over a chair the other day and reached out L hand but not R hand and was okay. PT-OP-E Functional Tests Start: 08/22/23 20:40 Freq: Status: Active Protocol: Document 08/28/23 09:08 LRN (Rec: 08/28/23 09:52 LRN [id number]) Functional Tests Apley's Scratch Test Action 3- Right T3 PT-OP-H Neuro Start: 08/22/23 20:40 Freq: Status: Active Protocol: Document 08/28/23 09:08 LRN (Rec: 08/28/23 09:52 LRN [id number]) Sensation Evaluation Gross Sensation Gross Sensation WNL PT-OP-J Posture/Palpation/Skin Start: 08/22/23 20:40 Freq: Status: Active Protocol: Document 08/28/23 09:08 LRN (Rec: 08/28/23 09:52 LRN [id number]) Posture Evaluation Position Standing Shoulder Posture (R) Rounded,(R) Forward Palpation Assessment Location R shoulder Palpation Location AC jt, Supraspinatus and biceps tendon attachment at humeral head Palpation Findings Tenderness PT-OP-K Range of Motion Start: 08/22/23 20:40 Freq: Status: Active Protocol: Document 08/28/23 09:08 LRN (Rec: 08/28/23 09:52 LRN [id number]) Shoulder Goniometric Range of Motion Shoulder Right Active Testing Position Sitting Flexion 130 Extension 42 Abduction 90 Internal Rotation Behind Back (text) L5 Comments Behind head - reach to suboccipital centerline location Left Active Flexion 180 Extension 55 Abduction 175 Internal Rotation Behind Back (text) T7 Comments Behind head - T3 spinous process PT-OP-M Strength Start: 08/22/23 20:40 Freq: Status: Active Protocol: Document 08/28/23 09:08 LRN (Rec: 08/28/23 09:52 LRN [id number]) Shoulder Strength Shoulder Manual Muscle Testing Left Abduction (C5) 3 Fair External Rotation 3 Fair Internal Rotation 3 Fair Comments Strength is 5/5 except as indicated above. Right Flexion 2 Poor Extension 4- Good- Abduction (C5) 2 Poor Adduction 3 Fair External Rotation 2+ Poor+ Internal Rotation 2+ Poor+ PT-OP-Q Treatments Start: 08/22/23 20:40 Freq: Status: Active Protocol: Document 09/12/23 11:25 NBM (Rec: 09/12/23 12:35 NBM [id number]) Therapeutic Exercises Supine Exercises shoulder flexion Supine Exercise Name AAROM Side right Equipment Used dowel Reps/Minutes x5 Comments limited pain-free ROM, dc'd. Sitting Exercises ROM Sitting Exercise Name PROM Wand- abd/scaption/fwd flex Side right Equipment Used wand Reps/Minutes 8' Comments cued for gentle pain-free ROM Standing Exercises pec stretch Standing Exercise Name low, modified goal post Side bilateral Equipment Used doorway Reps/Minutes x30s ea Comments cues for pain-free range, upright posture Other Exercises Nuha Other Exercise Name Shoulder flex, scaption, AB Side right Reps/Minutes x10 R AAROM, 10 SH x 5' Comments Cued to hold 10 SH & hold in painfree range. Manual Therapy Treatment Soft Tissue Mobilization R Upper Extremity Patient gave verbal consent for manual Yes treatment Body Location R Biceps Long head, supraspinatus, UT Mobilization Type Rolling,Strumming Intensity/Depth Moderate Body Position Supine Comments towel roll under distal humerus positive feedback response Taping R shoulder Body Location pt declines Self-Care/Home Management Treatment Education Patient Education Body Mechanics,Home Exercise Program,Joint Protection,Pain Management,Posture,Safety Other Education Discussion with pt importance of using help at work with tasks that are aggravating even with proper body mechanics and to use the help available to her at work as her goals are to avoid surgery . Pt questions POC for 2x weekly into Nov as a lot so explanation to pt for tendons to heal without aggravation will need time - pt to call to schedule. Pt encouraged to continue ice for pain management. PT-OP-R Modalities Start: 08/22/23 20:40 Freq: Status: Active Protocol: Document 09/05/23 10:06 SW (Rec: 09/05/23 10:30 SW [id number]) Ultrasound Therapy Treatment Ultrasound Patient Position Supine Coupling Medium Ultrasound Gel Applicator Size (cm2) 5 Frequency Setting (mHz) 1 Mode Setting Continuous Duty Cycle 100% Intensity Setting (w/cm2) 0.8 Comments R shoulder, posteriolateral, frequent followup for pt tolerance PT-OP-T Assessment and Plan Start: 08/22/23 20:40 Freq: Status: Active Protocol: Document 09/12/23 11:25 NBM (Rec: 09/12/23 12:35 NBM [id number]) Physical Therapy Assessment Goals Three Impairment Decreased R shoulder strength Impairment Be able to lift buckets and mop with water without help without pain, Improve R shoulder strength to be able to sleep 4-5 hrs without waking due to R shoulder pain. Improve R shoulder strength to be able to carry her backpack for work without pain. Improve R shoulder painfree ROM for dressing, snapping pants, vacumming. Short Term Goal (STG) Improve R shoulder strength to 4/5 to be able to carry her backpack for work without pain . STG Duration 09/09/23 Harp Regulator Goal (LTG) Improve R shoulder strength to no less than 4+/5 to be able to lift water buckets and mop without help with minimal to no pain for her job. LTG Duration 11/20/23 Two Impairment Decreased R shoulder painfree AROM Impairment Shoulder AROM (deg's): Flex is 130 R, 180 L; ext is 42 R, 55 L; AB is 90 R, 175 L; IR behind the back is: L5 R,T7 L; ER behind head is: suboccipital R, T3 L. Short Term Goal (STG) Pt will demonstrate good knowledge of proper body mechanics for ADLs. 09/05/23- educated pt on proper body mechanics for ADLs, issued HEP HOs. 09/07/23 Review of proper body mechanics for ADLs and for her workplace. Pt needed practice and demonstrations on how to move proper with recommendations shown on completing some tasks ( sweeping, mopping, lifting buckets w/less water, and pouring out water from buckets ). STG Duration 09/11/23 (09/07/23: MET GOAL) Mcfp Goal (LTG) Improve R shoulder painfree ROM for dressing, snapping pants, vacuuming. LTG Duration 11/20/23 One Impairment Pt lacks appropriate self care HEP. Impairment Be able to lift buckets and mop with water without help without pain, Improve R shoulder strength to be able to sleep 4-5 hrs without waking due to R shoulder pain. Improve R shoulder strength to be able to carry her backpack for work without pain. Short Term Goal (STG) Pt will be educated in nighttime positioning to improve R shoulder strength to be able to sleep 4-5 hrs without waking due to R shoulder pain. 09/05/23- educated pt on proper night time sleep positioning 09/07/23 review of nighttime positioning with pt waking 2x during the night. STG Duration 09/04/23 progressed 09/07/19 [employer]fp Goal (LTG) Pt will be independent in an effective self care HEP for R shoulder/rotator cuff & core strengthening and mobility ex' s, and neck ex's as appropriate. LTG Duration 11/20/23 Assessment Summary Assessment Shortened session (see Visit note). Joanne requires minimal cues maintaining pain-free range of motion w/ doorway pec stretch and pulleys but demos improved self-awareness with cueing and repetition. She declines KT taping and reports improved self-awareness and ease of completing work tasks with attention to body mechanics but still painful mopping - discussion w/ pt to utilize available help instead of pushing through pain in order to avoid aggravation to exisiting injuries and allow healing, as she reports help is available. STM to R upper extremity improves palpable tension and pt reports positive feedback response. Physical Therapy Plan Frequency and Duration Frequency of Treatment 2x/Week Duration of treatment (weeks) 12 Plan of Care Start Date 08/28/23 Plan of Care End Date 11/20/23 Therapeutic Interventions Therapeutic Interventions Home Exercise Program,Manual Therapy,Neuromuscular Re- education,Self-Care/Home Management,Soft Tissue Mobilization,Taping, Therapeutic Activities, Therapeutic Exercises Modalities Cold Pack/Ice Massage,Electric Stimulation,Hot Packs, Ultrasound Next Visit Focus/Plan Next Note Type Treatment Note Next Visit Plan Next: add HEP: R shoulder ROM ex's (intitiated 09/05/23, pulleys and wand) and RC strengthening. Modalities as needed to decrease pain and inflammation. Focus on improving mobility and strength of her R shoulder in light of her soft tissue injuries.
--- NOTE | 2023-09-29 16:51 | PT.OTN ---
Current Diagnoses Pain in right shoulder (09/29/23) Muscle weakness (generalized) (09/29/23) Sprain of unspecified rotator cuff capsule, initial encounter (09/29/23) Physical Therapy Treatment Note PT-OP-A Visit Information Start: 08/22/23 20:40 Freq: Status: Active Protocol: Document 09/29/23 09:23 LRN (Rec: 09/29/23 10:12 LRN [id number]) Out-Patient Physical Therapy Visit Information Visit Information Visit Type Progress Note Visit Start Time 09:23 Visit Stop Time 10:11 Visit Number 6 Evaluation Information Evaluation Date 08/28/23 Precautions Precautions PMH: L TKA, L JAZLYN, Tesfaye carpel tunnel surgery PT-OP-B Current Condition Start: 08/22/23 20:40 Freq: Status: Active Protocol: Document 08/28/23 09:08 LRN (Rec: 08/28/23 09:52 LRN [id number]) Current Condition History of Current Condition Onset Date June 2023 Current Complaints Pain at R ACJ off/on a lot during the day, worse at night or carrying. History of Current Condition At work was putting together a mop (pushing mop handle into the mop head), fingers got caught and while trying to withdrawl fingers, felt a sharp burning pain at wrist all the way up to the shoulder (anterior arm) up to ACJ. Now is tender with palpation at R ACJ. Prior Treatments and Tests MRI taken 08/17/23. 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 Treatment Goals Patient/Caregiver Goals Pt goals: Be able to lift buckets and mop with water without help without pain, Improve R shoulder strength to be able to sleep 4-5 hrs without waking due to R shoulder pain. Improve R shoulder strength to be able to carry her backpack for work without pain. Improve R shoulder painfree ROM for dressing, snapping pants, vacuuming. 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 PT-OP-C Subjective Start: 08/22/23 20:40 Freq: Status: Active Protocol: Document 09/29/23 09:23 LRN (Rec: 09/29/23 10:12 LRN [id number]) OP-PT Subjective Patient Comments Patient Comments Pt to seeing Dr. Silva . States she is worse because she is working so much . Hurting now all the time, notices most w/mopping and wiping tables. Not able to sleep well. Pain not with PROM, but with picking up objects or just the arm. Patient Questionnaires Quick Dash- Upper Extremity Quick Dash UE Score 50 Quick Dash UE Impairment 40 to 59% Impaired (Score 40- 59) PT-OP-E Functional Tests Start: 08/22/23 20:40 Freq: Status: Active Protocol: Document 08/28/23 09:08 LRN (Rec: 08/28/23 09:52 LRN [id number]) Functional Tests Apley's Scratch Test Action 3- Right T3 PT-OP-H Neuro Start: 08/22/23 20:40 Freq: Status: Active Protocol: Document 08/28/23 09:08 LRN (Rec: 08/28/23 09:52 LRN [id number]) Sensation Evaluation Gross Sensation Gross Sensation WNL PT-OP-J Posture/Palpation/Skin Start: 08/22/23 20:40 Freq: Status: Active Protocol: Document 08/28/23 09:08 LRN (Rec: 08/28/23 09:52 LRN [id number]) Posture Evaluation Position Standing Shoulder Posture (R) Rounded,(R) Forward Palpation Assessment Location R shoulder Palpation Location AC jt, Supraspinatus and biceps tendon attachment at humeral head Palpation Findings Tenderness PT-OP-K Range of Motion Start: 08/22/23 20:40 Freq: Status: Active Protocol: Document 09/29/23 09:23 LRN (Rec: 09/29/23 10:12 LRN [id number]) Shoulder Goniometric Range of Motion Shoulder Right Active Shoulder ROM WFL No Testing Position Sitting Flexion 90 Extension 25 Abduction 115 Internal Rotation Behind Back (text) L4 Comments Behind head: middle finger to spinous process C3 Left Active Shoulder ROM WFL Yes Testing Position Sitting Flexion 180 Extension 55 Abduction 175 Internal Rotation Behind Back (text) T7 Comments Behind head - T3 spinous process. PT-OP-L Special Tests Start: 08/22/23 20:40 Freq: Status: Active Protocol: Document 09/29/23 09:23 LRN (Rec: 09/29/23 17:36 LRN [id number]) Special Tests Cervical Spine Special Tests Traction Test Results + Comments Reductioin of R shoulder pain Foraminal Compression Test Results + Comments R shoulder pain onset Spurling's Test Test Results + Comments R shoulder pain onset PT-OP-M Strength Start: 08/22/23 20:40 Freq: Status: Active Protocol: Document 09/29/23 09:23 LRN (Rec: 09/29/23 10:12 LRN [id number]) Shoulder Strength Shoulder Manual Muscle Testing Right Flexion 4 Good Extension 4 Good Abduction (C5) 4 Good Adduction 3 Fair External Rotation 3 Fair Internal Rotation 4- Good- PT-OP-Q Treatments Start: 08/22/23 20:40 Freq: Status: Active Protocol: Document 09/29/23 09:23 LRN (Rec: 09/29/23 10:12 LRN [id number]) Therapeutic Exercises Supine Exercises shoulder flexion Supine Exercise Name AAROM/AROM with and w/o C. tx Side right Equipment Used dowel Reps/Minutes 2-3 SH x 10 Comments Xtra time taken for cuing of R SHR with flexion Sitting Exercises ROM Sitting Exercise Name Active shoulder flex, ext, AB, ER, IR Side bilateral Reps/Minutes x 2 each AROM, x 1 MMT Comments ROM and MMT taken taken Standing Exercises Shoulder Flex Standing Exercise Name Active flex with & w/o C. tx Side bilateral Equipment Used dowel Reps/Minutes 6' Comments Lessening of pain with C tx Elbow curls Side bilateral Equipment Used dowel Reps/Minutes 30x Other Exercises Nuha Other Exercise Name AAROM Shoulder flex, scaption, AB Side right Reps/Minutes 10' Comments Cued to hold 10 SH & hold in painfree range. Self-Care/Home Management Treatment Education Patient Education Home Exercise Program,Posture Other Education Pt educated in correct head/ neck posturing to imiting onset of R shoulder pain. Activities Self-Care/Home Management Activities Issued and v. review of HEP: R shoulder stretches: Sitting shoulder flexion; Standing shoulder flex at wall, Pec stretch at doorway, IR w/towel ; strengthening lat pull down w/TB. Issued and discussed Handout for proper posturing in sitting and standing with with discussion regarding minimizing R shoulder pain with proper head/neck positioning. PT-OP-R Modalities Start: 08/22/23 20:40 Freq: Status: Active Protocol: Document 09/05/23 10:06 SW (Rec: 09/05/23 10:30 SW [id number]) Ultrasound Therapy Treatment Ultrasound Patient Position Supine Coupling Medium Ultrasound Gel Applicator Size (cm2) 5 Frequency Setting (mHz) 1 Mode Setting Continuous Duty Cycle 100% Intensity Setting (w/cm2) 0.8 Comments R shoulder, posteriolateral, frequent followup for pt tolerance PT-OP-T Assessment and Plan Start: 08/22/23 20:40 Freq: Status: Active Protocol: Document 09/29/23 09:23 LRN (Rec: 09/29/23 10:12 LRN [id number]) Physical Therapy Assessment Rehab Potential Rehabilitation Potential Fair Evaluation Complexity Number of Personal Factors/Comorbidities 1-2 Number of Body Systems Impaired 4 or More Clinical Presentation at Evaluation Evolving Impairments Impairments Activity Tolerance,Functional Activities,Pain,Posture,ROM, Strength Goals Three Impairment Decreased R shoulder strength Impairment Be able to lift buckets and mop with water without help without pain, Improve R shoulder strength to be able to sleep 4-5 hrs without waking due to R shoulder pain. Improve R shoulder strength to be able to carry her backpack for work without pain. Improve R shoulder painfree ROM for dressing, snapping pants, vacumming. Short Term Goal (STG) Improve R shoulder strength to 4/5 to be able to carry her backpack for work without pain . 09/29/23: R shoulder strength improved to 4/5 for flex, ext , AB, IR; AD, ER is 3/5. STG Duration 09/09/23 (09/29/23: Improved) Snf Goal (LTG) Improve R shoulder strength to no less than 4+/5 to be able to lift water buckets and mop without help with minimal to no pain for her job. 09/29/23: R shoulder strength improved to 4/5 for flex, ext , AB, IR; AD, ER is 3/5. LTG Duration 11/20/23 Two Impairment Decreased R shoulder painfree AROM Impairment Shoulder AROM (deg's): Flex is 130 R, 180 L; ext is 42 R, 55 L; AB is 90 R, 175 L; IR behind the back is: L5 R,T7 L; ER behind head is: suboccipital R, T3 L. Short Term Goal (STG) Pt will demonstrate good knowledge of proper body mechanics for ADLs. 09/05/23- educated pt on proper body mechanics for ADLs, issued HEP HOs. 09/07/23 Review of proper body mechanics for ADLs and for her workplace. Pt needed practice and demonstrations on how to move proper with recommendations shown on completing some tasks ( sweeping, mopping, lifting buckets w/less water, and pouring out water from buckets ). STG Duration 09/11/23 (09/07/23: MET GOAL) Business [employer] Dean Goal (LTG) Improve R shoulder painfree ROM for dressing, snapping pants, vacuuming. 09/29/23: R shoulder painfree AROM: flex 90 deg's, Ext 25 deg's, AB 115 deg's, IR L4, Reach behind head: Middle fingertip to spinous process C3. LTG Duration 11/20/23 Improved for shdr AB , IR, & ER behind head One Impairment Pt lacks appropriate self care HEP. Impairment Be able to lift buckets and mop with water without help without pain, Improve R shoulder strength to be able to sleep 4-5 hrs without waking due to R shoulder pain. Improve R shoulder strength to be able to carry her backpack for work without pain. Short Term Goal (STG) Pt will be educated in nighttime positioning to improve R shoulder strength to be able to sleep 4-5 hrs without waking due to R shoulder pain. 09/05/23- educated pt on proper night time sleep positioning 09/07/23 review of nighttime positioning with pt waking 2x during the night. STG Duration 09/04/23 progressed 09/07/19 (need improving in sleep time ) [employer] Dean Goal (LTG) Pt will be independent in an effective self care HEP for R shoulder/rotator cuff & core strengthening and mobility ex' s, and neck ex's as appropriate. 08/28/23: HEP: Pec stretch on towel roll and pics of standing pec stretch for positions she can put her arm in while in supine. 09/29/23: HEP: R shoulder stretches: Sitting shoulder flexion; Standing shoulder flex at wall, Pec stretch at doorway, IR w/towel; strengthening lat pull down w/ TB. Education Handout for proper posturing in sitting and standing. LTG Duration 11/20/23 progressed 09/29/23 Assessment Summary Assessment Pt is a 63 yo female w/limited R shoulder ROM, strength and function due to soft tissue dysfunction per MRI. Today in addtion to limited mobility due to R shoulder soft tissue dysfunction she presents with signs and symptoms of cervical involvement with + C/S compresson & traction provocative tests. Her R shoulder strength has improved and she shows improvement with shoulder AROM for AB, ER, IR; her functional impairment has worsened per UE Quickdash score showing 40-59% impaired (initially was 20-39% impaired). It would be appropriate for further medical assessment for cervical involvement and for orthopedic evaluation for her soft tissue dysfunction. The pt is in a highly physical job and would like to be able to continue with surgery, but I feel a consult would be appropriate with discussion on pt alternatives to continuing physical therapy. We will continue as you recommend. Physical Therapy Plan Frequency and Duration Frequency of Treatment 2x/Week Duration of treatment (weeks) 12 Plan of Care Start Date 08/28/23 Plan of Care End Date 11/20/23 Therapeutic Interventions Therapeutic Interventions Home Exercise Program,Manual Therapy,Neuromuscular Re- education,Self-Care/Home Management,Soft Tissue Mobilization,Taping, Therapeutic Activities, Therapeutic Exercises Modalities Cold Pack/Ice Massage,Electric Stimulation,Hot Packs, Ultrasound Other Referrals/Consults Referrals/Consults Recommended Recommend MRI to assess for Cervical neural changes. Next Visit Focus/Plan Next Note Type Treatment Note Next Visit Plan Hold therapy until after her follow up visit with referring physician and then continue as recommended. If pt referred back to PT, continue with ex & HEP: RC and deep c. neck flexor strengthening. Modalities as needed to decrease pain and inflammation . ROM R shoulder & neck as tolerated. Focus on improving mobility and as tolerated, strength of her R shoulder in light of her soft tissue injuries and possible cervical involvement.
--- NOTE | 2024-07-30 12:20 | PT.OPDS ---
Current Diagnoses Pain in right shoulder (09/29/23) Muscle weakness (generalized) (09/29/23) Sprain of unspecified rotator cuff capsule, initial encounter (09/29/23) Visit Care Team Role Provider Type Chayito Malhotra PA-C Family Provider Non-Staff Specialty: Medical Address: [address] [place] [address], [id number] Email: Adis Silva MD Attending Provider Physician Primary Care Provider Referring Provider Specialty: Family Practice Address: [address] [place] [address], [id number] Email: [email or web address] Visit Number Visit Number 6 Discharge Summary PT-OP-B Current Condition Start: 08/22/23 20:40 Freq: Status: Active Protocol: Document 08/28/23 09:08 LRN (Rec: 08/28/23 09:52 LRN [id number]) Current Condition History of Current Condition Onset Date June 2023 Current Complaints Pain at R ACJ off/on a lot during the day, worse at night or carrying. History of Current Condition At work was putting together a mop (pushing mop handle into the mop head), fingers got caught and while trying to withdrawl fingers, felt a sharp burning pain at wrist all the way up to the shoulder (anterior arm) up to ACJ. Now is tender with palpation at R ACJ. Prior Treatments and Tests MRI taken 08/17/23. 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 Treatment Goals Patient/Caregiver Goals Pt goals: Be able to lift buckets and mop with water without help without pain, Improve R shoulder strength to be able to sleep 4-5 hrs without waking due to R shoulder pain. Improve R shoulder strength to be able to carry her backpack for work without pain. Improve R shoulder painfree ROM for dressing, snapping pants, vacuuming. 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 PT-OP-C Subjective Start: 08/22/23 20:40 Freq: Status: Active Protocol: Document 09/29/23 09:23 LRN (Rec: 09/29/23 10:12 LRN [id number]) OP-PT Subjective Patient Comments Patient Comments Pt to seeing Dr. Silva . States she is worse because she is working so much . Hurting now all the time, notices most w/mopping and wiping tables. Not able to sleep well. Pain not with PROM, but with picking up objects or just the arm. Patient Questionnaires Quick Dash- Upper Extremity Quick Dash UE Score 50 Quick Dash UE Impairment 40 to 59% Impaired (Score 40- 59) PT-OP-E Functional Tests Start: 08/22/23 20:40 Freq: Status: Active Protocol: Document 08/28/23 09:08 LRN (Rec: 08/28/23 09:52 LRN [id number]) Functional Tests Apley's Scratch Test Action 3- Right T3 PT-OP-H Neuro Start: 08/22/23 20:40 Freq: Status: Active Protocol: Document 08/28/23 09:08 LRN (Rec: 08/28/23 09:52 LRN [id number]) Sensation Evaluation Gross Sensation Gross Sensation WNL PT-OP-J Posture/Palpation/Skin Start: 08/22/23 20:40 Freq: Status: Active Protocol: Document 08/28/23 09:08 LRN (Rec: 08/28/23 09:52 LRN [id number]) Posture Evaluation Position Standing Shoulder Posture (R) Rounded,(R) Forward Palpation Assessment Location R shoulder Palpation Location AC jt, Supraspinatus and biceps tendon attachment at humeral head Palpation Findings Tenderness PT-OP-K Range of Motion Start: 08/22/23 20:40 Freq: Status: Active Protocol: Document 09/29/23 09:23 LRN (Rec: 09/29/23 10:12 LRN [id number]) Shoulder Goniometric Range of Motion Shoulder Right Active Shoulder ROM WFL No Testing Position Sitting Flexion 90 Extension 25 Abduction 115 Internal Rotation Behind Back (text) L4 Comments Behind head: middle finger to spinous process C3 Left Active Shoulder ROM WFL Yes Testing Position Sitting Flexion 180 Extension 55 Abduction 175 Internal Rotation Behind Back (text) T7 Comments Behind head - T3 spinous process. PT-OP-L Special Tests Start: 08/22/23 20:40 Freq: Status: Active Protocol: Document 09/29/23 09:23 LRN (Rec: 09/29/23 17:36 LRN [id number]) Special Tests Cervical Spine Special Tests Traction Test Results + Comments Reductioin of R shoulder pain Foraminal Compression Test Results + Comments R shoulder pain onset Spurling's Test Test Results + Comments R shoulder pain onset PT-OP-M Strength Start: 08/22/23 20:40 Freq: Status: Active Protocol: Document 09/29/23 09:23 LRN (Rec: 09/29/23 10:12 LRN [id number]) Shoulder Strength Shoulder Manual Muscle Testing Right Flexion 4 Good Extension 4 Good Abduction (C5) 4 Good Adduction 3 Fair External Rotation 3 Fair Internal Rotation 4- Good- PT-OP-T Assessment and Plan Start: 08/22/23 20:40 Freq: Status: Active Protocol: Document 07/30/24 12:16 KJ (Rec: 07/30/24 12:19 KJ Laptop) Physical Therapy Assessment Goals Three Impairment Decreased R shoulder strength Impairment Be able to lift buckets and mop with water without help without pain, Improve R shoulder strength to be able to sleep 4-5 hrs without waking due to R shoulder pain. Improve R shoulder strength to be able to carry her backpack for work without pain. Improve R shoulder painfree ROM for dressing, snapping pants, vacumming. Short Term Goal (STG) Improve R shoulder strength to 4/5 to be able to carry her backpack for work without pain . 09/29/23: R shoulder strength improved to 4/5 for flex, ext , AB, IR; AD, ER is 3/5. STG Duration 09/09/23 (09/29/23: Improved) Mcfp Goal (LTG) Improve R shoulder strength to no less than 4+/5 to be able to lift water buckets and mop without help with minimal to no pain for her job. 09/29/23: R shoulder strength improved to 4/5 for flex, ext , AB, IR; AD, ER is 3/5. LTG Duration 11/20/23 Two Impairment Decreased R shoulder painfree AROM Impairment Shoulder AROM (deg's): Flex is 130 R, 180 L; ext is 42 R, 55 L; AB is 90 R, 175 L; IR behind the back is: L5 R,T7 L; ER behind head is: suboccipital R, T3 L. Short Term Goal (STG) Pt will demonstrate good knowledge of proper body mechanics for ADLs. 09/05/23- educated pt on proper body mechanics for ADLs, issued HEP HOs. 09/07/23 Review of proper body mechanics for ADLs and for her workplace. Pt needed practice and demonstrations on how to move proper with recommendations shown on completing some tasks ( sweeping, mopping, lifting buckets w/less water, and pouring out water from buckets ). STG Duration 09/11/23 (09/07/23: MET GOAL) Mcfp Goal (LTG) Improve R shoulder painfree ROM for dressing, snapping pants, vacuuming. 09/29/23: R shoulder painfree AROM: flex 90 deg's, Ext 25 deg's, AB 115 deg's, IR L4, Reach behind head: Middle fingertip to spinous process C3. LTG Duration 11/20/23 Improved for shdr AB , IR, & ER behind head One Impairment Pt lacks appropriate self care HEP. Impairment Be able to lift buckets and mop with water without help without pain, Improve R shoulder strength to be able to sleep 4-5 hrs without waking due to R shoulder pain. Improve R shoulder strength to be able to carry her backpack for work without pain. Short Term Goal (STG) Pt will be educated in nighttime positioning to improve R shoulder strength to be able to sleep 4-5 hrs without waking due to R shoulder pain. 09/05/23- educated pt on proper night time sleep positioning 09/07/23 review of nighttime positioning with pt waking 2x during the night. STG Duration 09/04/23 progressed 09/07/19 (need improving in sleep time ) Mcfp Goal (LTG) Pt will be independent in an effective self care HEP for R shoulder/rotator cuff & core strengthening and mobility ex' s, and neck ex's as appropriate. 08/28/23: HEP: Pec stretch on towel roll and pics of standing pec stretch for positions she can put her arm in while in supine. 09/29/23: HEP: R shoulder stretches: Sitting shoulder flexion; Standing shoulder flex at wall, Pec stretch at doorway, IR w/towel; strengthening lat pull down w/ TB. Education Handout for proper posturing in sitting and standing. LTG Duration 11/20/23 progressed 09/29/23 Progress Towards Goals Progress Towards Goals Slow Progress - Other Assessment Summary Assessment Initial PT evaluation 08/28/23 for RUE pain. She attended 5 additional visits. At her last visit on 09/29/23 the therapist recommended holding PT and getting an MRI due to the possibility of cervical spine pathology. All subsequent appointments were cancelled and were not rescheduled. Physical Therapy Plan Discharge Physical Therapy Discharge Reasons Change in Medical Status
== END 2024-07-30 14:38 | disposition home or self-care (01) ==
LOC: PHYS 09:00
PROVIDERS: Family Provider Physician Assistant; PCP Family Medicine; Referring Provider Family Medicine; Visit Provider Family Medicine
DX: M25.511 Pain in right shoulder (principal); S43.429A Sprain of unspecified rotator cuff capsule, initial encounter; M62.81 Muscle weakness (generalized)
CPT/HCPCS: 97035; 97110; 97140; 97162; 97530; 97535

== ENCOUNTER → 2023-11-07 17:19 | Outpatient (CLI) | payer OTHER, SELFPAY ==
--- NOTE | 2023-11-07 17:23 | DI.RAD.S_ITS ---
PROCEDURE: XR WRIST LT MIN 3V INDICATIONS: Left hand and wrist injury TECHNIQUE: 3 views of the wrist were acquired. COMPARISON: [facility], CR, XR HAND LT MIN 3V, 11/07/2023, 17:22. [facility], CR, XR WRIST LT MIN 3V, 09/24/2020, 18:52. FINDINGS: Bones: Clarity at the 1st CMC joint and triquetrum is similar to 2020. No acute fractures or dislocations. No suspicious bony lesions. Soft tissues: No suspicious soft tissue calcifications. Trace chondrocalcinosis at the DRUJ. IMPRESSION: No acute bony abnormality. Dictated by: Kyrie Cortez M.D. on 11/07/2023 at 17:58 Approved by: Kyrie Cortez M.D. on 11/07/2023 at 17:59
--- NOTE | 2023-11-07 17:23 | DI.RAD.S_ITS ---
PROCEDURE: XR HAND LT MIN 3V INDICATIONS: Left hand and wrist injury TECHNIQUE: 3 views of the hand(s) acquired. COMPARISON: [facility], CR, XR HAND 3+ VIEWS LEFT, 09/23/2022, 8:50. [facility], CR, XR WRIST LT MIN 3V, 11/07/2023, 17:22. FINDINGS: Bones: Screw spanning the 2nd digit DIP joint. Irregularity at the 1st CMC joint. Lucency at the triquetrum. These findings are unchanged. No acute fractures or dislocations. Carpal bones are normally aligned. No suspicious bony lesions. Soft tissues: No suspicious soft tissue calcifications. IMPRESSION: No acute bony abnormality. Similar lucencies at the 1st CMC joint. Likely degenerative in nature. Stable 2nd digit DIP joint screw fixation. Dictated by: Kyrie Cortez M.D. on 11/07/2023 at 17:55 Approved by: Kyrie Cortez M.D. on 11/07/2023 at 17:58
== END ==
PROVIDERS: Family Provider Physician Assistant; PCP Family Medicine; Referring Provider Physician Assistant Surgical; Visit Provider Physician Assistant Surgical
DX: S66.912A Strain of unspecified muscle, fascia and tendon at wrist and hand level, left hand, initial encounter (principal); S69.92XA Unspecified injury of left wrist, hand and finger(s), initial encounter; X58.XXXA Exposure to other specified factors, initial encounter
CPT/HCPCS: 73110; 73130

== ENCOUNTER → 2023-11-13 16:50 | Outpatient (CLI) | payer OTHER, SELFPAY ==
--- NOTE | 2023-11-13 16:51 | DI.MRI.S_ITS ---
PROCEDURE: MR WRIST LT WO CON INDICATIONS: Left wrist injury, negative XR, continued pain TECHNIQUE: Noncontrast coronal proton density fast spin echo and T2 fast spin echo with fat saturation; coronal 3-D gradient echo, axial T1 spin echo and T2 fast spin echo with fat saturation, sagittal T1 spin echo through the wrist. COMPARISON: None. FINDINGS: Image quality: Excellent. Imaging findings shows subchondral cyst formation in the lunate and distal triquetral bones. Marrow signal in the visualized bones is otherwise normal without evidence for acute osseous abnormality. Appears be prior surgical resection of the trapezium bone. There appears to be an acute full-thickness tear of the flexor carpi radialis tendon. Remainder of the visualized ligaments and tendons appear intact. There is a small radiocarpal effusion present. The triangular fibrocartilage appears intact. There is a 1 cm septated fluid collection most consistent with a ganglion cyst noted adjacent to the ulna along the palmar aspect. IMPRESSION: 1. No evidence for acute osseous abnormality identified. 2. Apparent full-thickness acute tear with associated edematous change and fluid present involving the flexor carpi radialis tendon at the level of the radial carpal joint. 3. Subchondral cyst formation present within the lunate and distal triquetral bones. 4. Apparent prior surgical resection of the trapezoid bone. 5. Small effusion in the radiocarpal joint. 6. 1 cm septated ganglion cyst adjacent to the ulna along the palmar aspect at the level of the radial carpal joint. Dictated by: Shukri Asher M.D. on 11/14/2023 at 13:39 Approved by: Shukri Asher M.D. on 11/14/2023 at 13:53
== END ==
LOC: MRI 16:50
PROVIDERS: Family Provider Physician Assistant; PCP Family Medicine; Referring Provider Family Medicine; Visit Provider Family Medicine
DX: S66.912A Strain of unspecified muscle, fascia and tendon at wrist and hand level, left hand, initial encounter (principal); S69.92XA Unspecified injury of left wrist, hand and finger(s), initial encounter; S63.502A Unspecified sprain of left wrist, initial encounter; M67.432 Ganglion, left wrist; M25.432 Effusion, left wrist; M85.632 Other cyst of bone, left forearm; X58.XXXA Exposure to other specified factors, initial encounter
CPT/HCPCS: 73221

== ENCOUNTER 2023-12-27 10:23 | Outpatient (RCR) | payer OTHER, SELFPAY ==
--- NOTE | 2023-12-27 13:17 | OT.OPPOC ---
Physical, Occupational & Speech Therapy At [facility] LissyJulissaradha Stern [id number] 1960 Visit Care Team Role Provider Type Adis Silva MD Primary Care Provider Physician Address: [address] [place] [address], [address] Chayito Malhotra PA-C Family Provider Non-Staff Address: [address] [place], [address] Jordon Roblero PA-C Attending Provider Non-Staff Referring Provider Address: [address] [place], [address] Occupational Therapy Plan of Care OT Outpatient Adult Evaluation Start: 12/27/23 10:48 Freq: Status: Active Protocol: Document 12/27/23 10:49 ALLYN (Rec: 12/27/23 11:32 [email or web address] [id number]) General Information - Adult Visit Information Visit Number 03/[id number] Plan of Care Dates 12/27/23 - 02/07/24 Insurance Information [facility], visits approved Session Time Visit Start Date 12/27/23 Visit Start Time 10:45 Visit Stop Time 11:30 Setting Treatment Setting Outpatient Care Visit Type Note Type Initial Evaluation Referral Referring Physician Jordon Roblero Reason for Referral L wrist pain Identification Identification Confirmed Yes Identification Confirmed By self Patient Patient Goals to return to work without pain Patient Questionnaires Quick Dash- Upper Extremity Quick Dash UE Score 38.6 Quick Dash UE Impairment 20 to 39% Impaired (Score 20- 39) Quick Dash- Work and Sports Modules Quick Dash W&S Score 62.5 Quick Dash Work and Sport Impairment 60 to 79% Impaired (Score 60- 79) Goals Objective Measurements Objective Measurements L: wrist ext 55A/65P; wrist flex 60A/65P; radial deviation 35A; ulnar deviation 25A MMT: R wrist 5/5 grossly; L wrist flex/ext 4-/5 Flight Technician: R 46, 55, 49 (avg 50#) L 35, 45, 26 (avg 35#) Lateral:R 10, L 8 Pincer:R 6, L 6 3 jaw:R 9.5, L 7 Tread Builder Goals Prison Goals 1. 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 2. Pt will increase L wrist strength to 5/5 to improve safety with lifting tasks. 3. Pt will report improved perception of function with a QuickDash score of 15 or better. 4. 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 5. Pt will be I with HEP. Assessment/Plan Assessment Patient Response Excellent Rehabilitation Potential Excellent Impairments Identified ADLs,Body Mechanics, Coordination/Dexterity, Functional Activities,Pain, Weakness,Posture,Meaningful Activities Treatment Assessment Pt is 63 yo R dominant female presents for skilled OT services with an order for L wrist pain. 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 In mid-October, pt was doing this when she reports having pain in her L wrist ?it felt like I tore something.? Pt reports that the pain continued the next day when lifting a light blanket. Pt was seen by MD on 11/06 and was given a left wrist splint and had imaging ordered. Pt?s imaging showed a full thickness tear to flexor carpi radialis, subchondral cyst formation within the lunate and distal triquetral bones, surgical resection of trapezoid bone, and 1 cm ganglion cyst. Pt reports that on follow-up with MD she clarified that she had had a previous tendon transfer and therefore it was not a tendon rupture that was noted. Pt was told at that time not to wear her splint too often, pt reports she has d/c it since. Pt also reports receiving an order for Celebrex to reduce swelling. Pt continues to take it. Pt?s medical history is significant for OA, back pain, HTN, osteopenia, TBI/ concussion. Pt reports she continues to have L radial wrist pain when performing heavy lifting. She also complains that her L 4th and 5th digits are ?so painful ? and they trigger especially on waking. Pt does not numerically rate any of her pain, but describes as ?sore?, ?aches?, and ?throbs?. Pt also states ?It?s a little better. That grabbing pain doesn?t happen anymore.? Pt has difficulty performing lifting tasks, buttoning pants , vacuuming, mopping, sweeping , and changing bed linens due to pain. Pt?s goal ?I want to strengthen it and to be able to do my job without pain.? Pt demonstrates WFL/WNL ROM for B UEs. For specific L wrist ROM see objective section of eval. Pt demonstrates smooth coordination and coordination speed B?ly. 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 Pt has tenderness on palpation over the L radial styloid. Pt would benefit from skilled OT services to address these deficits and promote return to PLOF and safe return to work. Reviewed with Patient Goals Patient Understanding Excellent Plan Length of treatment (weeks) 6 Plan of Care Start Date 12/27/23 Plan of Care End Date 02/07/24 Treatment Frequency Once a Week Treatment Duration 45 Minutes Therapeutic Contents Client Education,Functional Activities,Home Exercise Program,Joint Protection, Manual Therapy,Education, Neuromuscular Re-Education, Self-Care,Stretching/ Flexibility Activities, Therapeutic Activities, Therapeutic Exercises Modalities As Needed Patient Instruction Plan of Care,Questions/ Concerns Functional Wrist/Hand Scan Hand Side Sensory Assessment Sensory Profile2 Electronically Signed by: Emerald Bennett OT 12/27/23 0296 If you are in agreement with this Plan of Care, please return a signed and dated copy. I have reviewed this Plan of Care and certify that the skilled therapy services above are required to meet the patient?s needs. Physician Signature Date Printed Name and Credentials Clinical Instructor Signature Printed Name and Credentials
--- NOTE | 2024-01-15 13:29 | OT.OP.DC ---
Visit Care Team Role Provider Type Adis Silva MD Primary Care Provider Physician Address: [address] [place] [address], [address] Email: [email or web address] Chayito Malhotra PA-C Family Provider Non-Staff Address: [address], [place], [address] Email: Jordon Roblero PA-C Attending Provider Non-Staff Referring Provider Address: [address] [place], [address] Email: OT Outpatient OT Outpatient Adult Evaluation Start: 12/27/23 10:48 Freq: Status: Active Protocol: Document 12/27/23 10:49 ALLYN (Rec: 12/27/23 11:32 ALLYN [id number]) General Information - Adult Visit Information Visit Number 03/[id number] Plan of Care Dates 12/27/23 - 02/07/24 Insurance Information [facility], 12 visits approved Session Time Visit Start Date 12/27/23 Visit Start Time 10:45 Visit Stop Time 11:30 Setting Treatment Setting Outpatient Care Visit Type Note Type Initial Evaluation Referral Referring Physician Jordon Roblero Reason for Referral L wrist pain Identification Identification Confirmed Yes Identification Confirmed By self Patient Patient Goals to return to work without pain Patient Questionnaires Quick Dash- Upper Extremity Quick Dash UE Score 38.6 Quick Dash UE Impairment 20 to 39% Impaired (Score 20- 39) Quick Dash- Work and Sports Modules Quick Dash W&S Score 62.5 Quick Dash Work and Sport Impairment 60 to 79% Impaired (Score 60- 79) Goals Objective Measurements Objective Measurements L: wrist ext 55A/65P; wrist flex 60A/65P; radial deviation 35A; ulnar deviation 25A MMT: R wrist 5/5 grossly; L wrist flex/ext 4-/5 Hospital 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 Pt will increase L hot mill roller strength to within 5# of R for improved use at work. 2. Pt will increase L wrist strength to 5/5 to improve safety with lifting tasks. 3. Pt will report improved perception of function with a QuickDash score of 15 or better. 4. 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 5. Pt will be I with HEP. Assessment/Plan Assessment Patient Response Excellent Rehabilitation Potential Excellent Impairments Identified ADLs,Body Mechanics, Coordination/Dexterity, Functional Activities,Pain, Weakness,Posture,Meaningful Activities Treatment Assessment Pt is 63 yo R dominant female presents for skilled OT services with an order for L wrist pain. 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 In mid-October, pt was doing this when she reports having pain in her L wrist ?it felt like I tore something.? Pt reports that the pain continued the next day when lifting a light blanket. Pt was seen by MD on 11/06 and was given a left wrist splint and had imaging ordered. Pt?s imaging showed a full thickness tear to flexor carpi radialis, subchondral cyst formation within the lunate and distal triquetral bones, surgical resection of trapezoid bone, and 1 cm ganglion cyst. Pt reports that on follow-up with MD she clarified that she had had a previous tendon transfer and therefore it was not a tendon rupture that was noted. Pt was told at that time not to wear her splint too often, pt reports she has d/c it since. Pt also reports receiving an order for Celebrex to reduce swelling. Pt continues to take it. Pt?s medical history is significant for OA, back pain, HTN, osteopenia, TBI/ concussion. Pt reports she continues to have L radial wrist pain when performing heavy lifting. She also complains that her L 4th and 5th digits are ?so painful ? and they trigger especially on waking. Pt does not numerically rate any of her pain, but describes as ?sore?, ?aches?, and ?throbs?. Pt also states ?It?s a little better. That grabbing pain doesn?t happen anymore.? Pt has difficulty performing lifting tasks, buttoning pants , vacuuming, mopping, sweeping , and changing bed linens due to pain. Pt?s goal ?I want to strengthen it and to be able to do my job without pain.? Pt demonstrates WFL/WNL ROM for B UEs. For specific L wrist ROM see objective section of eval. Pt demonstrates smooth coordination and coordination speed B?ly. Pt presents with some weakness at L wrist, hot mill roller , and pinch. Pt has tenderness on palpation over the L radial styloid. Pt would benefit from skilled OT services to address these deficits and promote return to PLOF and safe return to work. Reviewed with Patient Goals Patient Understanding Excellent Plan Length of treatment (weeks) 6 Plan of Care Start Date 12/27/23 Plan of Care End Date 02/07/24 Treatment Frequency Once a Week Treatment Duration 45 Minutes Therapeutic Contents Client Education,Functional Activities,Home Exercise Program,Joint Protection, Manual Therapy,Education, Neuromuscular Re-Education, Self-Care,Stretching/ Flexibility Activities, Therapeutic Activities, Therapeutic Exercises Modalities As Needed Patient Instruction Plan of Care,Questions/ Concerns Functional Wrist/Hand Scan Hand Side Sensory Assessment Sensory Profile2 OT Outpatient Treatment Note - Adult Start: 12/27/23 10:48 Freq: Status: Active Protocol: Document 01/15/24 13:27 ALLYN (Rec: 01/15/24 13:29 JOHNUTCHUCK [id number]) OT Outpatient Adult Treatment Note Visit Type Note Type Discharge Summary - - - - Assessment Assessment of Improvement Pt was seen for skilled OT eval on 12/27/23. Pt has not been seen for any OT treatment sessions. Pt has called and asked to be d/c due to difficulty scheduling OT appointments with her work schedule. D/C pt per pt request. -
== END 2024-01-17 14:46 | disposition home or self-care (01) ==
LOC: OT 10:23
PROVIDERS: Family Provider Physician Assistant; PCP Family Medicine; Referring Provider Physician Assistant Surgical; Visit Provider Physician Assistant Surgical
DX: M25.532 Pain in left wrist (principal)
CPT/HCPCS: 97165

== ENCOUNTER → 2024-08-21 16:58 | Outpatient (CLI) | payer OTHER, SELFPAY ==
--- NOTE | 2024-08-21 17:04 | DI.RAD.S_ITS ---
PROCEDURE: XR CERVICAL SPINE 2V OR 3V INDICATIONS: Neck pain L and I TECHNIQUE: 3 view(s) of the cervical spine were acquired. COMPARISON: None. FINDINGS: Bones: No fractures or dislocations to the T1 level. The lateral masses of C1 appear intact on the odontoid view. No suspicious bony lesions. There is severe disc height loss at C5-6. Moderate disc height loss at remaining levels. Diffuse facet arthrosis. Soft tissues: No prevertebral soft tissue swelling. IMPRESSION: Moderate to severe, multilevel degenerative disc disease and diffuse facet arthrosis. Dictated by: Daniel Silverman M.D. on 08/22/2024 at 9:39 Approved by: Daniel Silverman M.D. on 08/22/2024 at 9:40
== END ==
PROVIDERS: Family Provider Physician Assistant; PCP Family Medicine; Referring Provider Nurse Practitioner Family; Visit Provider Nurse Practitioner Family
DX: S16.1XXA Strain of muscle, fascia and tendon at neck level, initial encounter (principal); M47.812 Spondylosis without myelopathy or radiculopathy, cervical region; M50.322 Other cervical disc degeneration at C5-C6 level; X58.XXXA Exposure to other specified factors, initial encounter
CPT/HCPCS: 72040

== ENCOUNTER → 2024-09-05 15:47 | Outpatient (CLI) | payer OTHER, SELFPAY ==
--- NOTE | 2024-09-05 15:51 | DI.RAD.S_ITS ---
PROCEDURE: XR CERVICAL SPINE 2V OR 3V INDICATIONS: fall with neck pain and right hand pain TECHNIQUE: 2 view(s) of the cervical spine were acquired. COMPARISON: [facility], CR, XR CERVICAL SPINE 2V OR 3V, 08/21/2024, 16:09. FINDINGS: Bones: No acute fracture or dislocation. Severe degenerative changes are present at C5-6 where there is loss of the intervertebral disc space, severe endplate sclerosis and osteophytosis. No new compression deformities when compared with the study dated August 21, 2024. No spondylolisthesis. Soft tissues: No prevertebral soft tissue swelling. IMPRESSION: No new compression deformity visualized. However, if there is high clinical suspicion for occult fracture, CT of the cervical spine is recommended. Dictated by: Prisca Parks M.D. on 09/06/2024 at 10:43 Approved by: Prisca Parks M.D. on 09/06/2024 at 10:45
--- NOTE | 2024-09-05 15:51 | DI.RAD.S_ITS ---
PROCEDURE: XR HAND RT MIN 3V INDICATIONS: fall with neck pain and right hand pain TECHNIQUE: 3 views of the hand(s) acquired. COMPARISON: [facility], CR, XR HAND LT MIN 3V, 11/07/2023, 17:22. FINDINGS: Bones: Severe degenerative changes are present at the 1st CMC joint and the triscaphe joint. No acute fracture or dislocation. There is diffuse mild to moderate interphalangeal joint space narrowing throughout the right hand. No suspicious bony lesions. A cannulated screw is present across the fused 2nd DIP joint. Soft tissues: No suspicious soft tissue calcifications. IMPRESSION: No acute fracture or dislocation. Severe degenerative change. If pain persists, followup imaging in 5-7 days is recommended to exclude occult fracture. Dictated by: Prisca Parks M.D. on 09/06/2024 at 12:20 Approved by: Prisca Parks M.D. on 09/06/2024 at 12:22
== END ==
LOC: RAD 15:50
PROVIDERS: PCP Family Medicine; Referring Provider Family Medicine; Visit Provider Family Medicine
DX: M47.812 Spondylosis without myelopathy or radiculopathy, cervical region (principal); M54.2 Cervicalgia; M79.641 Pain in right hand
CPT/HCPCS: 72040; 73130

== ENCOUNTER → 2024-09-05 15:52 | Outpatient (CLI) | payer OTHER, SELFPAY ==
[2024-09-05 18:00] LABS: Add Manual Diff / Slide Review NO; Basophils Absolute Auto 100 /uL (0-100); Eosinophils Absolute Auto 200 /uL (0-450); Eosinophils Percent Auto 2.6 % (2-4); Hematocrit 38.1 % (36-46); Lymphocytes Absolute Auto 1600 /uL (1100-4500); Lymphocytes Percent Auto 18.1 % (25-40); Mean Corpuscular HGB Conc 34.1 % (30-36); Mean Corpuscular Hemoglobin 31.5 PG (26-34); Mean Corpuscular Volume 92.3 fL (80-100); Monocytes Absolute Auto 700 /uL (0-900); Monocytes Percent Auto 8.5 % (3-14); Neutrophils Absolute Auto 6100 /uL (1500-7000); Neutrophils Percent Auto 69.8 % (50-75); Platelet Count 309 X10^3/uL (150-400); Red Blood Cell Count 4.13 X10^6/uL (4.0-5.2); Red Cell Distribution Width 12.7 % (11.6-14.8); White Blood Cell Count 8.7 X10^3/uL (4.5-11.0)
[2024-09-05 18:12] LABS: Alanine Aminotransferase 21 IU/L (<35); Albumin 4.3 g/dL (3.5-5.0); Alkaline Phosphatase 100 U/L (38-126); Aspartate Aminotransferase 30 IU/L (14-36); BUN Creatinine Ratio 41.1 (6-22); Bilirubin Total 0.8 mg/dL (0.2-1.3); Blood Urea Nitrogen 23 mg/dL (7-17); Calcium 9.4 mg/dL (8.4-10.2); Carbon Dioxide 23 mmol/L (22-32); Chloride 103 mmol/L (98-107); Cholesterol 188 mg/dL (140-199); Estimated Glomerular Filt Rate > 60 mL/min (>60); Globulin 2.1 g/dL (1.7-4.1); Glucose 110 mg/dL (70-99); HDL Cholesterol 97 mg/dL (40-60); HEMOLYSIS < 15 (0-50); LDL Cholesterol Calculated 66 mg/dL (<100); Potassium 4.3 mmol/L (3.4-5.1); Sodium 133 mmol/L (137-145); Total Protein 6.4 g/dL (6.3-8.2); Triglycerides 126 mg/dL (35-150)
[2024-09-05 18:47] LABS: TSH w/ Reflex to FT4 0.87 uIU/mL (0.47-4.68)
== END ==
PROVIDERS: PCP Family Medicine; Referring Provider Family Medicine; Visit Provider Family Medicine
DX: F90.9 Attention-deficit hyperactivity disorder, unspecified type (principal); F41.8 Other specified anxiety disorders; G89.4 Chronic pain syndrome; G89.29 Other chronic pain; M54.9 Dorsalgia, unspecified; I10 Essential (primary) hypertension; E78.5 Hyperlipidemia, unspecified
CPT/HCPCS: 80053; 80061; 84443; 85025

== ENCOUNTER → 2024-09-06 14:34 | Outpatient (CLI) | payer OTHER, SELFPAY ==
--- NOTE | 2024-09-06 14:36 | DI.RAD.S_ITS ---
PROCEDURE: XR ELBOW RT MIN 3V INDICATIONS: Elbow and knee pain s/p fall TECHNIQUE: 3 views of the elbow were acquired. COMPARISON: None. FINDINGS: Bones: No fractures or dislocations. No suspicious bony lesions. Soft tissues: No elbow joint effusion. No suspicious soft tissue calcifications. IMPRESSION: No acute bony abnormality or significant joint effusion. Dictated by: Rickie Bustamante M.D. on 09/07/2024 at 2:35 Approved by: Rickie Bustamante M.D. on 09/07/2024 at 2:44
--- NOTE | 2024-09-06 14:36 | DI.RAD.S_ITS ---
PROCEDURE: XR KNEE RT 3V INDICATIONS: Elbow and knee pain s/p fall TECHNIQUE: 3 views of the knee were acquired. COMPARISON: , CR, XR KNEE RT 3V, 09/24/2020, 18:52. FINDINGS: Bones: No fractures or dislocations. Moderate medial and mild to moderate lateral tibiofemoral and moderate patellofemoral compartment narrowing with associated osteophytosis. No suspicious bony lesions. Soft tissues: No joint effusion. No suspicious soft tissue calcifications. IMPRESSION: KL grade 2 tricompartmental osteoarthritis without evidence of acute bony abnormality or significant effusion. Dictated by: Rickie Bustamante M.D. on 09/07/2024 at 2:44 Approved by: Rickie Bustamante M.D. on 09/07/2024 at 2:50
[2024-09-06 18:11] LABS: Creatinine Urine Random 102.66 mg/dL
[2024-09-06 18:16] LABS: Microalbumin Urine Random 4.7 mg/dL (0-1.6)
== END ==
PROVIDERS: PCP Family Medicine; Referring Provider Family Medicine; Visit Provider Family Medicine
DX: F90.9 Attention-deficit hyperactivity disorder, unspecified type (principal); F41.8 Other specified anxiety disorders; G89.4 Chronic pain syndrome; M54.9 Dorsalgia, unspecified; I10 Essential (primary) hypertension; E78.5 Hyperlipidemia, unspecified; M17.11 Unilateral primary osteoarthritis, right knee
CPT/HCPCS: 73080; 73562; 82043; 82570

== ENCOUNTER → 2024-10-11 07:43 | Outpatient (CLI) | payer OTHER, SELFPAY ==
--- NOTE | 2024-10-11 07:44 | DI.MRI.S_ITS ---
PROCEDURE: MR CERVICAL SPINE WO CON INDICATIONS: Neck pain TECHNIQUE: Noncontrast sagittal T1 spin echo and T2 fast spin echo, sagittal STIR, foraminal oblique sagittal T2 fast spin echo, and axial gradient echo or T2 fast spin echo through the cervical spine. COMPARISON: None. FINDINGS: Image quality: Patient motion artifact degrades image quality. Alignment and Curvature: There is straightening of the normal cervical lordosis. Bone Marrow: Marrow demonstrates normal overall signal. Severe disc desiccation with severe disc space narrowing and endplate changes at C5-C6. Spinal Cord: Visualized spinal cord has normal size and signal. No cerebellar tonsillar herniation. Paraspinous Soft Tissues: No paravertebral masses. Prevertebral soft tissues are normal in thickness. The combination of disc bulging with endplate spurring and facet arthropathy result in the following: C2-C3: Moderate bilateral foraminal stenosis. C3-C4: Moderate bilateral foraminal stenosis. C4-C5: Mild central canal stenosis with severe right and moderate left foraminal stenosis. C5-C6: Moderate central canal stenosis with severe bilateral foraminal stenosis. C6-C7: Mild central canal stenosis with severe right and moderate left foraminal stenosis. C7-T1: Normal appearance. IMPRESSION: Multilevel degenerative disc disease results in varying degrees of central canal and foraminal stenosis. Dictated by: Tequila Villela M.D. on 10/11/2024 at 9:15 Approved by: Tequila Villela M.D. on 10/11/2024 at 9:19
== END ==
PROVIDERS: PCP Family Medicine; Referring Provider Family Medicine; Visit Provider Family Medicine
DX: M50.30 Other cervical disc degeneration, unspecified cervical region (principal); M48.02 Spinal stenosis, cervical region; M54.50 Low back pain, unspecified; G89.29 Other chronic pain
CPT/HCPCS: 72141

== ENCOUNTER 2024-10-14 12:45 | Day surgery (SDC) | payer OTHER, SELFPAY ==
[2024-10-14 13:40] VITALS: BP 127/80; PULSE 90; RESP 16; TEMP 36.5; O2SAT 98
[2024-10-14] MEDS: LACTATED RINGERS 1,000 ML 42 ML IV (13:57)
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
--- NOTE | 2024-10-14 14:05 | PM.OP.COLON ---
Operative Date/Time/Diagnoses Date of procedure: 10/14/24 Time of procedure: 14:37 Pre-op diagnosis: See indication and findings Post-op diagnosis: same Procedure & Clinicians Study performed: Colonoscopy Same procedure(s) as scheduled: Yes Indications: Need for colorectal cancer screening and personal history of colon polyps in the distant past Surgeon: Pop Ly Anesthesia Type: Other Procedure Notes Procedure in detail: After informed consent was obtained the patient was placed in left lateral decubitus position. The video colonoscope was placed in the rectum slowly advanced cecum. Preparation was good. On slow withdrawal mucosa was carefully examined. The scope was removed. The patient tolerated the procedure well. Blood loss none Complications none Sedation mac Findings 1. Normal colonoscopy to cecum other than scattered left sided diverticulum Patient should have follow-up colonoscopy in 5-10 years Scope withdrawal time: After informed consent was obt
[2024-10-14 14:34] VITALS: BP 100/63; PULSE 73; RESP 23; TEMP 37.1; O2SAT 97
[2024-10-14 14:40] VITALS: BP 109/62; PULSE 67; RESP 23; O2SAT 99
[2024-10-14 14:45] VITALS: BP 123/68; PULSE 71; RESP 30; TEMP 37.1; O2SAT 98
== END 2024-10-14 14:58 | disposition home or self-care (01) ==
PROVIDERS: PCP Family Medicine; Referring Provider Internal Medicine Gastroenterology; Visit Provider Internal Medicine Gastroenterology
PROC: 0DJD8ZZ Inspection of Lower Intestinal Tract, Via Natural or Artificial Opening Endoscopic (ICD-10-PCS; CPT 45378; principal; 2024-10-14 14:00)
DX: Z12.11 Encounter for screening for malignant neoplasm of colon (principal); Z86.0100 Personal history of colon polyps, unspecified; K57.30 Diverticulosis of large intestine without perforation or abscess without bleeding
CPT/HCPCS: 45378; J2704

== ENCOUNTER 2024-11-13 10:45 | Outpatient (RCR) | payer OTHER, SELFPAY ==
--- NOTE | 2024-11-07 19:26 | PT.OPPOC ---
Physical, Occupational & Speech Therapy At [facility] Current Diagnoses Other chronic pain (11/07/24) Cervicalgia (11/07/24) Low back pain, unspecified (11/07/24) Visit Care Team Role Provider Type Adis Silva MD Attending Provider Physician Family Provider Primary Care Provider Referring Provider Specialty: Family Practice Address: [address] [place] [address], [facility] Email: [email or web address] Plan Of Care PT OP: Cervical/Upper Extremity Start: 11/07/24 15:03 Freq: Status: Active Protocol: Document 11/07/24 15:03 BL (Rec: 11/07/24 19:26 BL Laptop) Out-Patient Physical Therapy Visit Information Visit Information Visit Type Initial Evaluation Visit Start Time 15:15 Visit Stop Time 15:55 Visit Number 1 (03/29) 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 Pt reports on 08/20/24 she was caught behind a boat during a drill and had to try to lift an object in od position and feels she may have strained her neck. Then [place] 09[place]04[place]24 [place] the ground but denies hitting her head. States since this injury she has had posterior neck pain for the past two months. Reports symptoms may have slightly improved however continues to have greatest discomfort with turning her head and looking down. Reports heat seems to help slightly. Reports she is back to work but will be off in another week as she is having rotator cuff surgery on 11/14 to the R shoulder. Patient Questionnaires Neck Disability Index NDI Score 50% disability Posture Evaluation Comments Posture Comments forward head with slightly rounded shoulders noted. R shoulder elevated compared to L. Palpation Assessment Location cervical Palpation Details pain noted in posterior cervical extensors L>R and L scalene, chaparro upper trap Cervical Spine Range of Motion Cervical Spine Active Degrees Flexion 50 Extension 80 Rotation Left 40 Rotation Right 32 Shoulder Goniometric Range of Motion Shoulder Measured in Degrees right Shoulder ROM WFL Yes Comments slight limitations into R should abduction left Shoulder ROM WFL Yes Special Tests Cervical Spine Special Tests Traction Test Results negative Foraminal Compression Test Results negative Spurling's Test Test Results negative Cervical Spine Strength Cervical Spine Manual Muscle Testing Testing Position Sitting Flexion (C1-2) 4 Good Extension 4 Good Rotation Left 4 Good Rotation Right 4 Good Lateral Flexion Left 4 Good (C3) Lateral Flexion 4 Good Right (C3) Comments limited due to pain in all ranges Shoulder Strength Shoulder Manual Muscle Testing Right Flexion 4+ Good+ Abduction (C5) 4+ Good+ External Rotation 4+ Good+ Internal Rotation 4+ Good+ Left Flexion 4+ Good+ Abduction (C5) 4+ Good+ External Rotation 4+ Good+ Internal Rotation 4+ Good+ Scapula Strength Scapula Manual Muscle Testing Right Elevation (C4) 5 Normal Abduction 4+ Good+ Left Elevation (C4) 5 Normal Abduction 4+ Good+ Therapeutic Exercises Sitting Exercises ROM Sitting Exercise chin tuck, upper trap stretch Name Physical Therapy Assessment Rehab Potential Rehabilitation Good Potential Evaluation Complexity Number of Personal 1-2 Factors/ Comorbidities Number of Body 3 Systems Impaired Clinical Evolving Presentation at Evaluation Impairments Impairments Activity Tolerance,Functional Activities,Functional Mobility,Pain,Posture,ROM,Soft Tissue Mobility,Strength ,Tone,Transfers Goals Three Oval Or Circular Glass Cutter Goal (LTG) Pt will report a decreased in NDI score to 20% disability or better by DC for improved functional mobility. Two Mcfp Goal (LTG) Pt will report a decrease in her symptoms with forward flexion to 2/10 or better by DC for improved quality of life. 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 Oval Or Circular Glass Cutter Goal (LTG) Pt will demo improved AROM with L/R rotation to 60 deg or better by DC for improved functional mobility with ADLS. Assessment Summary Assessment Pt presents with whiplash type symptoms. Pt demos decreased AROM along with decreased strength and functional stability. Pt demos increased pain. Pt will benefit from skilled Physical Therapy intervention for strength and endurance training in order to improve functional stability and decrease symptoms for return to PLOF. Physical Therapy Plan Frequency and Duration Frequency of 2x/Week Treatment Duration of 12 treatment (weeks) Plan of Care Start 11/07/24 Date Plan of Care End 01/30/25 Date Therapeutic Interventions Therapeutic Coordination Training,Home Exercise Program,Joint Interventions Mobilizations,Manual Therapy,Neuromuscular Re-education ,Orthotic/Prosthetic Management,Patient/Caregiver Education,Self-Care/Home Management,Sensory Integration ,Soft Tissue Mobilization,Taping,Therapeutic Activities ,Therapeutic Exercises Modalities Cold Pack/Ice Massage,Electric Stimulation,Hot Packs, Infrared Therapy,Iontophoresis,Traction- Mechanical, Ultrasound Next Visit Focus/Plan Next Note Type Treatment Note Next Visit Plan Advance HEP for cervical AROM and tissue mobility. Manual therapy for tissue and joint mobility. Plan of Care Dates Plan of Care Start Date 11/07/24 Plan of Care End Date 01/30/25 Electronically Signed by: Santiago Young, PT 11/07/24 1926 If you are in agreement with this Plan of Care, please return a signed and dated copy. I have reviewed this Plan of Care and certify that the skilled therapy services above are required to meet the patient?s needs. Physician Signature Date Printed Name and Credentials Clinical Instructor Signature Printed Name and Credentials
--- NOTE | 2024-11-13 12:27 | PT.OTN ---
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 Patient reports she was able to perform the home exercises. Therapeutic Exercises Supine Exercises breathing from diaphragm Supine Exercise Name HEP Reps/Minutes 3 min Comments Pt ed use of self tactile cues AROM CS rotation Supine Exercise Name On occipital float Side bilateral Reps/Minutes 2-3 min Comments verbal cues Sitting Exercises breathing from diaphragm Comments verbal cues ROM Sitting Exercise chin tuck ( chin tuck hooklying with tactile cues, Name upper trap stretch Reps/Minutes X 8 chin tuck X 2 UT stretch 60 sec with AROM Rot X 4 Comments tactiel and verbal cues Manual Therapy Treatment Consent Patient gave verbal Yes consent for manual treatment Soft Tissue Mobilization CS Body Location paraspinals, levat scap, UT, scalenes at clavicle, occipitals, STM at masti Mobilization Type Cross-Friction,Manual Lymphatic Drainage Intensity/Depth Moderate Body Position Hooklying Comments and seated with pillows under UE's Hot Pack/Cold Pack Treatment ice Location cs pack in pillow case Patient Position Hooklying Comments request to end ice pack at 9 min Physical Therapy Assessment Goals Three Mcfp Goal (LTG) Pt will report a decreased in NDI score to 20% disability or better by DC for improved functional mobility. Two Behavioral Health Aide Goal (LTG) Pt will report a decrease in her symptoms with forward flexion to 2/10 or better by DC for improved quality of life. One Short Term Goal (STG pt will be ind with HEP within 2 visits in order to ) progress toward detention therapy goals outside of therapy visits. Behavioral Health Aide Goal (LTG) Pt will demo improved AROM with L/R rotation to 60 deg or better by DC for improved functional mobility with ADLS. Assessment Summary Assessment Patient requires increased cues for chin tuck but able to perform with good form and dec force post training. AROM CS side bend and rotation continues to be limited bilateral. During STM noted muscles occipital area with swelling/boggy sensation. Physical Therapy Plan Frequency and Duration Frequency of 2x/Week Treatment Duration of 12 treatment (weeks) Plan of Care Start 11/07/24 Date Plan of Care End 01/30/25 Date Next Visit Focus/Plan Next Note Type Treatment Note Next Visit Plan Advance HEP for cervical AROM and tissue mobility. Manual therapy for tissue and joint mobility.
--- NOTE | 2024-11-27 14:29 | PT.OPDS ---
Current Diagnoses Other chronic pain (11/13/24) Cervicalgia (11/13/24) Low back pain, unspecified (11/13/24) Visit Care Team Role Provider Type Adis Silva MD Attending Provider Physician Family Provider Primary Care Provider Referring Provider Specialty: Family Practice Address: [address] [place] [address], [facility] Email: [email or web address] Visit Number Visit Number 2 (04/29) Discharge Summary Unable to follow up with pt, plan to DC pt at this time. 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 Patient reports she was able to perform the home exercises. Therapeutic Exercises Supine Exercises breathing from diaphragm Supine Exercise Name HEP Reps/Minutes 3 min Comments Pt ed use of self tactile cues AROM CS rotation Supine Exercise Name On occipital float Side bilateral Reps/Minutes 2-3 min Comments verbal cues Sitting Exercises breathing from diaphragm Comments verbal cues ROM Sitting Exercise chin tuck ( chin tuck hooklying with tactile cues, Name upper trap stretch Reps/Minutes X 8 chin tuck X 2 UT stretch 60 sec with AROM Rot X 4 Comments tactiel and verbal cues Manual Therapy Treatment Consent Patient gave verbal Yes consent for manual treatment Soft Tissue Mobilization CS Body Location paraspinals, levat scap, UT, scalenes at clavicle, occipitals, STM at masti Mobilization Type Cross-Friction,Manual Lymphatic Drainage Intensity/Depth Moderate Body Position Hooklying Comments and seated with pillows under UE's Hot Pack/Cold Pack Treatment ice Location cs pack in pillow case Patient Position Hooklying Comments request to end ice pack at 9 min Physical Therapy Assessment Goals Three Drafting Layout Man Goal (LTG) Pt will report a decreased in NDI score to 20% disability or better by DC for improved functional mobility. Two Drafting Layout Man Goal (LTG) Pt will report a decrease in her symptoms with forward flexion to 2/10 or better by DC for improved quality of life. One Short Term Goal (STG pt will be ind with HEP within 2 visits in order to ) progress toward fci therapy goals outside of therapy visits. Drafting Layout Man Goal (LTG) Pt will demo improved AROM with L/R rotation to 60 deg or better by DC for improved functional mobility with ADLS. Assessment Summary Assessment Patient requires increased cues for chin tuck but able to perform with good form and dec force post training. AROM CS side bend and rotation continues to be limited bilateral. During STM noted muscles occipital area with swelling/boggy sensation. Physical Therapy Plan Frequency and Duration Frequency of 2x/Week Treatment Duration of 12 treatment (weeks) Plan of Care Start 11/07/24 Date Plan of Care End 01/30/25 Date Next Visit Focus/Plan Next Note Type Treatment Note Next Visit Plan Advance HEP for cervical AROM and tissue mobility. Manual therapy for tissue and joint mobility.
== END 2024-11-28 13:13 | disposition home or self-care (01) ==
LOC: PHYS 10:45
PROVIDERS: Family Provider Family Medicine; PCP Family Medicine; Referring Provider Family Medicine; Visit Provider Family Medicine
DX: M54.50 Low back pain, unspecified (principal); G89.29 Other chronic pain; M54.2 Cervicalgia
CPT/HCPCS: 97110; 97140; 97162

== ENCOUNTER → 2025-01-23 10:48 | Outpatient (CLI) | payer OTHER, SELFPAY ==
--- NOTE | 2025-01-23 10:50 | DI.MRI.S_ITS ---
PROCEDURE: MR AB PANCREATIC/MRCP PROTOCOL
== END ==
PROVIDERS: PCP Family Medicine; Referring Provider Family Medicine; Visit Provider Family Medicine
DX: K86.89 Other specified diseases of pancreas (principal); K80.20 Calculus of gallbladder without cholecystitis without obstruction
CPT/HCPCS: 74183; A9579